=== PATIENT | male | born 1940 | race African-American/Black ===

== ENCOUNTER → 2016-09-23 10:34 | Outpatient (CLI) | payer MEDICARE ==
[2010-08-23 13:55] VITALS: BMI 25.3
== END | disposition home or self-care (01) ==
LOC: D.CT 09-16 11:00
DX: N28.1 Cyst of kidney, acquired (principal)

== ENCOUNTER 2018-06-24 10:14 | Inpatient (IN) | payer MEDICARE ==
[~2018-06-24] VITALS: Ht 180.3 cm; Wt 83.2 kg
--- NOTE | ~2018-06-24 | MORECARE ---
CASE MANAGEMENT DISCHARGE SUMMARY PATIENT: TATYANA DAI UNIT: [id number] ADM DATE: 06/24/18 AGE: 77 : 41 SEX: M ROOM/BED: D.2133 AUTHOR: CHANDRIKA VILLEGAS PHYSICIAN: REFERRING PHYSICIAN: BYRON REAVES MD DATE OF SERVICE: 06/27/18 Discharge Plan Patient Name: TATYANA DAI [facility] [facility] 1940 Planned Disposition: Home Anticipated Discharge Date: 06/27/18 Discharge Date: Expected LOS: 3 Initial Reviewer: [email or web address] Initial Review Date: 06/24/2018 Generated: 06/27/18 3:03 pm Patient Name: TATYANA DAI Page [phone] at 1403 All edits/amendments must be made on the electronic document DICTATION DATE: 06/27/18 140 TACO MAKER: JANET 06/27/18 140 RPT#: [id number] DC DATE: STATUS: ADM IN [facility] [address] [place] [address] END OF REPORT
--- NOTE | ~2018-06-24 | MORECARE ---
CASE MANAGEMENT DISCHARGE SUMMARY PATIENT: TATYANA DAI UNIT: [id number] ADM DATE: 06/24/18 AGE: 77 : 41 SEX: M ROOM/BED: D.2133 AUTHOR: CHANDRIKA VILLEGAS PHYSICIAN: REFERRING PHYSICIAN: BYRON REAVES MD DATE OF SERVICE: 06/27/18 Discharge Plan Patient Name: TATYANA DAI Facility: [facility]:[place] : 1940 Planned Disposition: Home Anticipated Discharge Date: 06/27/18 Discharge Date: Expected LOS: 3 Initial Reviewer: [email or web address] Initial Review Date: 06/24/2018 Generated: 06/27/18 3:11 pm DCPIA - Discharge Planning Initial Assessment Updated by [email or web address]: Marlene Moffett on 06/27/18 2:05 pm * Is the patient Alert and Oriented? Yes * How many steps to enter\exit or inside your home? none * PCP DR Reaves * Pharmacy [facility] on [facility] * Preadmission Environment Home with Family * ADLs Independent * Equipment None * Other Equipment N/A * List name and contact numbers for known caregivers / representatives who currently or will assist patient after discharge: [facility] [phone] * Verbal permission to speak to the caregivers and representatives has been obtained from the patient. Yes * Community resources currently utilized None * Please name any agencies selected above. N/A * Additional services required to return to the preadmission environment? No * Can the patient safely return to the preadmission environment? Yes * Has this patient been hospitalized within the prior 30 days at any hospital? No Last DP export: 06/27/18 1:03 Patient Name: TATYANA DAI Page [id number] at 1411 All edits/amendments must be made on the electronic document DICTATION DATE: 06/27/181410 CINDER PITMAN: JANET 06/27/181410 RPT#: [id number] DC DATE: STATUS: ADM IN [facility] [address] [place] [address] END OF REPORT
--- NOTE | ~2018-06-24 | MORECARE ---
CASE MANAGEMENT DISCHARGE SUMMARY PATIENT: TATYANA DAI UNIT: [id number] ADM DATE: 06/24/18 AGE: 77 : 41 SEX: M ROOM/BED: D.2133 AUTHOR: BAKARI,DOC PHYSICIAN: REFERRING PHYSICIAN: BYRON REAVES MD DATE OF SERVICE: 06/29/18 Discharge Plan Patient Name: TATYANA DAI Facility: [facility]:[place] : 1940 Planned Disposition: Home Anticipated Discharge Date: 06/27/18 Discharge Date: 06/27/2018 Expected LOS: 3 Initial Reviewer: [email or web address] Initial Review Date: 06/24/2018 Generated: 06/29/18 10:23 am Comments DCP- Discharge Planning Updated by [email or web address]: Marlene Moffett on 06/27/18 1:[address] Cm met at the bedside with the patient. His , Dulce, was present. He gave permission for CM to speak with her present. She assist him in managing his care. Cm explained her role in discharge planning. Patient and stated he is independent in his care. Denies any needs. He was not utilizing home health or any services prior to admission. Neither the patient or his feel he has a need at present. CM advised how to obtain home health service if needed post discharge. He does not have any DME. No need identified for DME. His will provide transportation to home. PCP- DR [facility]aves [facility]. P Patient and deny any needs. Voiced no questions or concerns. DCPIA - Discharge Planning Initial Assessment Updated by [email or web address]: Marlene Moffett on 06/27/18 2:05 pm * Is the patient Alert and Oriented? Yes * How many steps to enter\exit or inside your home? none * PCP DR Reaves * Pharmacy [facility] on [facility] * Preadmission Environment Home with Family * ADLs Independent * Equipment None * Other Equipment N/A * List name and contact numbers for known caregivers / representatives who currently or will assist patient after discharge: Dulce alexandre- - [phone] * Verbal permission to speak to the caregivers and representatives has been obtained from the patient. Yes * Community resources currently utilized None * Please name any agencies selected above. N/A * Additional services required to return to the preadmission environment? No * Can the patient safely return to the preadmission environment? Yes * Has this patient been hospitalized within the prior 30 days at any hospital? No Coverage Notice Reviewer: [email or web address] Carmen Marlene Moffett Notice Issued Date-Time: 06/27/2018 13:05 Notice Type: IM Discharge Notice Notice Delivered To: Patient Relationship to Patient: Api Product Manager Name: Delivery Method: HAND - Hand Delivered Jenifer Days: Prior Verbal Notification: Recipient Understood Notice: Yes Recipient Signature: Yes Med Rec Note Co-signed by Attending: Coverage Notice Comment: CM discussed Discharge IMM to the patient and his .. They had no questions and stated they understood. Patient signed Discharge IMM. Patient given a copy and signed copy to the hard cover chart. Last DP export: 06/27/18 1:18 Patient Name: TATYANA DAI Page [phone] at 0923 All edits/amendments must be made on the electronic document DICTATION DATE: 06/29/18922 APPLICATIONS SYSTEM ANALYST: JANET 06/29/18922 RPT#: [id number] DC DATE:06/27/18 STATUS: DIS IN [facility] [address] [place] [address] END OF REPORT
--- NOTE | ~2018-06-24 | OP ---
PATIENT NAME: TATYANA DAI MEDICAL RECORD: [id number] :42 LOCATION:D.M2 D.2133 ADMISSION DATE:06/24/18 SURGEON: EVER MANDEL MD DATE OF OPERATION: 06/26/2018 PROCEDURES: 1. PTCA stent LAD. 2. Intravascular ultrasound. 3. Left heart catheterization. 4. Selective coronary angiography. 5. Left ventriculogram. INDICATION: Angina and coronary artery disease. PROCEDURE IN DETAIL: After informed consent was obtained and after a detailed description of risks, benefits as well as alternative therapies, the patient proceed with angiogram and angioplasty. The right femoral area was prepped and draped in normal sterile fashion. Right femoral artery was cannulated via modified Seldinger technique with placement of 6-Yakut sheath. All catheters exchanged through this sheath. FINDINGS: Left ventriculogram was performed in standard 30-degree CHOUDHURY view reveals global hypokinesis throughout all segments. Overall ejection fraction estimated at 30%. SELECTIVE CORONARY ANGIOGRAPHY: 1. Left main showed no significant angiographic disease. 2. Left anterior descending with 80% stenosis in the mid vessel confirmed by intravascular ultrasound. 3. Left circumflex has mild irregularities, but no flow-limiting stenosis. 4. Right coronary has moderate irregularities, but no flow-limiting stenosis. PTCA STENT OF THE LEFT ANTERIOR DESCENDING: The stent used was a 3.0 x 15 mm Integrity. Result was 0% residual stenosis. OVERALL IMPRESSION: Successful PTCA stent of the LAD going from 80% initial stenosis to 0% residual. TRANSINT:[id number] Voice Confirmation ID: [id number] DOCUMENT ID: [id number] EVER MANDEL MD at 1914 CC: [id number] DICTATION DATE: 06/26/18 1552 SENIOR PRIVATE CLIENT ADVISOR: 06/26/18 1628 ADM IN [facility] [address] [place] [address]
--- NOTE | ~2018-06-24 | EC ---
PATIENT:TATYANA DAI DATE OF SERVICE: 06/24/18 SEX: M MEDICAL RECORD: [id number] DATE OF : 42 LOCATION:D.M2 D.213 AGE OF PATIENT: 77 ADMISSION DATE: 06/24/18 REFERRING PHYSICIAN: INTERPRETING PHYSICIAN: EVER SNOW MD ECHOCARDIOGRAM REPORT ECHO CHARGES 4 ECHO COMPLETE Date: 06/24/18 CLINICAL DIAGNOSIS: CHF ECHOCARDIOGRAPHIC MEASUREMENTS (adult normal given) AC root (d.<3.7cm) 3.1 cm LV Septum d (<1.2 cm> 1.5 cm Valve Excursion 1.2 cm LV Septum (systole) 1.6 cm Left Atria (s.<4.0cm> 4.5 cm LVPW d(<1.2cm) 0.8 cm RV (d.<2.3cm) 3.6 cm LVPW (sytole) 1.2 cm LV diastole(<5.6CM) 5.7 cm MV E-F(>70mm/sec) cm LV systole 4.8 cm LVOT Diameter 1.9 cm MV exc.(>10mm) cm Est.ejection fraction (50-75%) % DOPPLER: LVIT cm/sec A 25 cm/sec E 53 cm/sec LA cm/sec RVSP 40.7 mmHg LVOT 51 cm/sec AOP1/2T m/s Asc. Ao 120 cm/sec RVOT 47 cm/sec RA cm/sec PA 69 cm/sec AV Gradient Peak 5.7 mmHg AV Mean 3.4 mmHg AV Area 0.8 cm MV Gradient Peak 2.8 mmHg MV Mean 1.2 mmHg MV Area cm COMMENTS: Director Selection And Administration: Jas [facility] Industrial Paramedic: 1 Dr. Snow TAPE# PACS Pericardial Effusion N DATE OF SERVICE: 06/24/2018 FINDINGS: 1. Left ventricular chamber size is within normal limits. Left ventricular systolic function is depressed. Overall ejection fraction is estimated at 30%. 2. Left atrium is enlarged at 4.5 cm. Right atrium and right ventricle chamber sizes are moderately dilated. 3. Valvular structures have normal structure and motion. 4. Doppler interrogation reveals mild mitral regurgitation and mild tricuspid regurgitation. No other valvular insufficiency or stenosis. Pulmonary systolic ECHOCARDIOGRAM REPORT [id number] TATYANA DAI pressure is estimated at 41 mmHg. 5. No evidence of pericardial effusion or left ventricular thrombus. TRANSINT:[id number] Voice Confirmation ID: [id number] DOCUMENT ID: [id number] EVER SNOW MD at 1914 CC: [id number] DICTATION DATE: 06/24/18 1636 ASSISTANT CURATOR: 06/24/18 1813 ADM IN [facility] [address] [place] [id number]
--- NOTE | ~2018-06-24 | HP ---
PATIENT: TATYANA DAI MEDICAL RECORD: [id number] ACCOUNT: [id number] LOCATION:[facility] D.2133 : 42 ADMISSION DATE: 06/24/18 PCP: BYRON REAVES MD HISTORY AND PHYSICAL EXAMINATION DATE OF ADMISSION: 06/24/2018 CHIEF COMPLAINT: Shortness of breath with swelling in lower extremities. HISTORY OF PRESENT ILLNESS: A 77-year-old -[place] male who presents for followup today. The patient, over the past couple of weeks, has had some intermittent lower extremity edema. He has also recently had CT scan of abdomen which did reveal no definite acute findings of the abdomen. This was done on April 23. He had a noted circumferential bladder wall thickening as well as having bilateral adrenal nodules, which were indeterminate. It was suggested that he have an MRI. He had a large 12-cm simple cyst off the right kidney. He had been referred to Dr. Sreekanth Puentes, urologist at [facility], for evaluation. He did have a followup MRI of the abdomen. The MRI of the abdomen revealed bilateral adrenal nodules. The left adrenal nodule demonstrated signal dropout in keeping with a benign adenoma. The right adrenal nodularity was incomplete visualization as the exam was ordered as a renal protocol, it was felt that there was dropout in it as well and favored a benign adenoma. It was suggested he have a repeat CT in 6-12 months for further evaluation. Small bilateral pleural effusions were noted. He had a simple cyst noted on both kidneys, but one on the right was 12 cm. The patient also, in the past, had had a transesophageal echo on 08/20/2017 to evaluate for an aortic arch aneurysm. At that time, his left ventricular chambers were within normal. Overall ejection fraction was greater than 55%. Left atrium, right atrium, and right ventricle sizes were within normal limit. Valvular structures had no stricture and Doppler revealed [id number] mitral regurg, mild aortic insufficiency, mild tricuspid regurgitation, valvular insufficiency or stenosis. The aortic root was mildly dilated at 4.8 cm. He is followed by Dr. Morris. He had no pericardial effusion or ventricular thrombus. Over the past couple of weeks, the patient had also had a sed rate as well as a CRP which were totally unremarkable. He was noted to have liver functions which were beginning to elevate as well as his BUN and creatinine. The patient presented today. He had an 8-pound weight gain. It was felt that he warranted admission for further evaluation. PAST MEDICAL HISTORY: His past history is significant in that he has had diabetes mellitus. He has also had history of having hypertension. FAMILY HISTORY: He had a son who of aortic aneurysm. His mother had hypertension and at 43. Father at 80, reasons unknown. 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 He is educated through the 12th grade. He is . He has moderate amount of exercise weekly. He denies any ethanol, tobacco use or abuse. MEDICATIONS: Included Lasix 20 mg once a day, glipizide 10 mg p.o. daily, losartan 100 mg once a day, pantoprazole 40 mg a day, tamsulosin 0.4 mg two tabs p.o. daily, and vitamin D3 2000 international units once a day. ALLERGIES: He has no known drug allergies. HISTORY AND PHYSICAL [id number] TATYANA DAI REVIEW OF SYSTEMS: CONSTITUTIONAL: He denies any headache, seizure, or syncope. He denies any change in visual or auditory acuity. PULMONARY: He has reported having increasing shortness of breath. CARDIOVASCULAR: He has had no chest pain, palpitation, PND, or orthopnea. GASTROINTESTINAL: No chronic nausea, vomiting, melena, or hematochezia. GENITOURINARY: No urgency, frequency, or dysuria. PHYSICAL EXAMINATION: VITAL SIGNS: Today, his weight is 193 pounds. His blood pressure is 150/90, his pulse is 104, his respirations are 16, and temperature is 96.6. HEENT: His head is normocephalic. There are no lesions. Ears; his TMs are clear. Eyes; pupils are equal, round, and reactive to light. His extraocular movements are intact. His nasal cavity, oral cavity, and oropharynx are clear. NECK: Supple. There is no adenopathy. HEART: Slightly tachycardic. LUNGS: Clear. ABDOMEN: Soft. Bowel sounds are positive. EXTREMITIES: He has 2+ pretibial edema extending up to the knees. Of note, the patient, on 03/31/2018, had BUN of 17, creatinine 1.18, sodium 140, potassium 4.15, chloride 102.6, and bicarb 32. Today, the patient's BUN is 37, his creatinine is 2.1, sodium is 144, potassium 4.76, bicarb is 31.7, and chloride is 103.7. CBC; his hemoglobin is 13.9, hematocrit is 42.4, his white count is 9.9, and his platelets are 165. Chest x-ray showed cardiomegaly with some mild bilateral pleural effusion. He had an EKG showing sinus tachycardia with a right bundle-branch block. ASSESSMENT: Hepatocellular dysfunction, congestive heart failure, and acute renal failure. PLAN: The patient is admitted. Cardiology as well as nephrology will be consulted. He will have an echocardiogram. Asked to be seen by Dr. Yusuf. Also, the patient will have a renal workup and we will continue to evaluate this. TRANSINT:[id number] Voice Confirmation ID: [id number] DOCUMENT ID: [id number] BYRON REAVES MD at 0723 CC: [id number] DICTATION DATE: 06/24/18 1640 COSMETIC SALES: 06/24/18 1720 DIS IN 06/27/18 [place] [id number] [place] [address]
--- NOTE | ~2018-06-24 | DS ---
PATIENT:TATYANA DAI :42 MEDICAL RECORD: [id number] DISCHARGE SUMMARY ADMISSION DATE: 06/24/18 DISCHARGE DATE: 06/27/18 DATE OF ADMISSION: 06/24/2018 DATE OF DISCHARGE: 06/27/2018 ADMISSION DIAGNOSES: Congestive heart failure, acute renal failure, and hepatocellular dysfunction. DISCHARGE DIAGNOSES: Congestive heart failure, systolic dysfunction with ejection fraction of 30%, [id number] renal failure, and hepatocellular dysfunction. CONSULTS: Cardiology, Dr. Snow and Dr. Marrero, nephrology. PROCEDURES: Heart catheterization with a stent to the left anterior descending. HOSPITAL COURSE: The patient was admitted, edema, shortness of breath, diuresed for acute renal impairment failure, BUN of 37, creatinine 2.1. The patient was admitted cautiously, diuresed with shortness of breath, cardiology consulted. Echocardiogram showed significant decrease in ejection fraction from prior. Underwent cardiac catheterization with successful stent to the LAD. The patient is feeling much better. He is dressed and anxious to go home, has been cleared for discharge by cardiology and nephrology. Family is present and agree with discharge. The patient is discharged home in significantly improved condition. PHYSICAL EXAMINATION: On discharge, VITAL SIGNS: Temperature 98.6, blood pressure 112/79, heart rate 72, respirations 18, O2 sats 95% room air. GENERAL: The patient is alert dressed, answers appropriately, anxious to go home. HEART: Regular rate and rhythm. LUNGS: Clear. ABDOMEN: Soft. EXTREMITIES: Present times 4. No significant edema. NEUROLOGIC: Intact. SKIN: Warm and dry. No rash. LABORATORY DATA: CBC on discharge, hemoglobin 13, hematocrit 40.5. White count is 9.0, platelets 148. Chemistry shows sodium of 144, potassium 3.9, chloride 104, bicarbonate 31.8, BUN 38, creatinine improved to 1.8. The patient will follow up with Dr. Martin in 2 weeks. Follow up with nephrology within the next 2-3 weeks. DISCHARGE MEDICATIONS: Per med rec. DISCHARGE INSTRUCTIONS: He will bring all of his medicines to his appointment. Daily weights. See chart for further details. Appreciate and agree with the diagnoses of the specialist. DISCHARGE SUMMARY REPORT [id number] TATYANA DAI TRANSINT:[id number] Voice Confirmation ID: [id number] DOCUMENT ID: [id number] JAKE MAJOR DO at 1304 CC: [id number] DICTATION DATE: 06/27/18 115 BEAM SAW OPERATOR: 06/27/182128 DIS IN 06/27/18 [place] [id number] [place] [id number]
--- NOTE | ~2018-06-24 | HEMODYNAMI ---
PATIENT:TATYANA DAI MEDICAL RECORD: [id number] : 42 [id number] ADMISSION DATE: 06/24/18 Generatedon:06/26/201815:57 Patient name: TATYANA DAI Patient #: [id number] SSN: : 1940 Date of study: 06/26/2018 Page: Of Hemodynamic Procedure Report Patient Data Patient Demographics Procedure consent was obtained First Name: TATYANA Gender: Male Last Name: SUHAS : 1940 Patient #: [id number] Age: 77 year(s) Race: Black Additional ID: [id number] Contact details [address]: [address] [place] [address] State: [place] City: [place] Zip code: [address] Past Medical History Allergies: No known allergies Admission Admission Data Admission Date: 06/24/2018 Admission Time: 10:14 Admit Source: Other Room #: D.2133 Lab Results Lab Result Date: 06/26/2018 Lab Result Time: 0:00 Biochemistry Name Units Result Min Max BUN mg/dl 36 --(----)-* 7 18 Creatinine mg/dl 1.7 --(----)-* 0.6 1.3 CBC Name Units Result Min Max Hemoglobin g/dl 13 -*(----)-- 13.5 17.5 Procedure Procedure Types Cath Procedure Diagnostic Procedure [facility] w/Coronaries FFR/IVUS Intra-Coronary IVUS Initial Sedation Charges Moderate Sedation up to 15 minutes PCI Procedure Coronary Stent Coronary Stent Initial Procedure Description Procedure Date Procedure Date: 06/26/2018 Procedure Start Time: 15:35 Procedure End Time: 15:50 Procedure Staff Name Function Todd Snow MD Performing Physician Nette Meyer RT Monitor Jesus Jaimes RT Scrub Jessica Schmitt RN Nurse Procedure Data Cath Procedure Fluoroscopy Diagnostic fluoroscopy Total fluoroscopy Time: 2.6 time: 2.6 min min Diagnostic fluoroscopy Total fluoroscopy dose: 353 dose: 353 mGy mGy Contrast Material Contrast Material Type Amount (ml) Isovue 300 76 Entry Location Entry Primary Successful Side Size Upsize Upsize Entry Closure Succes sful Closure Location (Fr) 1 (Fr) 2 (Fr) Remarks Device Remarks Femoral Right 5 Fr 6 Fr Exoseal artery Short Estimated blood loss: 10 ml Diagnostic catheters Device Type Used For End Catheter Placement MULTIPACK Pigtail 5 Fr Procedure catheter MULTIPACK JL 4.0 5Fr Procedure catheter MULTIPACK 3DRC 5Fr Procedure catheter Procedure Complications No complications Procedure Medications Medication Administration Route Dosage 0.9% NaCl I.V. 100 ml/hr Oxygen etCO2 Nasal cannula 2 l/min Lidocaine 2% added to field 20 Heparin Flush Bag added to field 2 bags (1000units/500ml NS) Radial Cocktail added to field 1 syringe (Verapomil 2mg/Nitro 400mcg/Heparin 1500units) Fentanyl I.V. 50 mcg Versed I.V. 2 mg Heparin Bolus I.V. 4000 units Integrilin (Bolus I.V. 6.3 ml 2mg/ml) Plavix P.O. 600 mg Hemodynamics Rest HGB: 13 (g/dl) Heart Rate: 89 (bpm) Snapshots Pre Cath Intra NCS Post Cath Vital Signs Time Heart Resp SPO2 etCO2 NIBP (mmHg) Rhythm Pain Sedation Rate (ipm) (%) (mmHg) Status Level (bpm) 15:15:34 90 18 96 21.6 137/106(124) NSR 0 (11) 10(A) , No pain 15:19:46 93 26 100 17.1 132/110(123) NSR 0 (11) 10(A) , No pain 15:23:56 90 13 100 29.8 129/106(118) NSR 0 (11) 10(A) , No pain 15:28:03 90 14 100 29.8 136/106(125) NSR 0 (11) 9(A) , No pain 15:32:13 90 18 100 14.1 136/105(123) NSR 0 (11) 9(A) , No pain 15:36:21 94 21 96 26.8 124/100(114) NSR 0 (11) 9(A) , No pain 15:40:27 92 20 97 27 121/94(113) NSR 0 (11) 9(A) , No pain 15:44:31 90 20 96 28 132/98(115) NSR 0 (11) 9(A) , No pain 15:48:39 88 18 96 29.3 128/99(111) NSR 0 (11) 10(A) , No pain Medications Time Medication Route Dose Verified Delivered Reason Not es Effectiveness by by 15:15:22 0.9% NaCl I.V. 100 Todd Jessica used for ml/hr Gwendolyn Schmitt senior treasury analyst 15:15:31 Oxygen etCO2 2 l/min Todd Jessica used for Nasal Gwendolyn Schmitt procedure cannula RN 15:15:38 Lidocaine 2% added 20ml Todd Todd for local to vial Gwendolyn Snow MD anesthetic field 15:15:45 Heparin Flush added 2 bags Todd Todd used for Bag to Gwendolyn Snow MD procedure (1000units/500ml field NS) 15:16:06 Radial Cocktail added 1 Todd Todd used for (Verapomil to syringe Gwendolyn Snow MD procedure 2mg/Nitro field 400mcg/Heparin 1500units) 15:26:57 Fentanyl I.V. 50 mcg Todd Jessica for sedation Gwendolyn Schmitt RN 15:27:08 Versed I.V. 2 mg Todd Jessica for sedation Gwendolyn Schmitt RN 15:42:05 Heparin Bolus I.V. 4000 Todd Jessica for emmanuel ified units Gwendolyn Schmitt anticoagulation with Dr. SHIRA Baltazra 15:43:33 Integrilin I.V. 6.3 ml Todd Jessica for was domonique (Bolus 2mg/ml) Gwendolyn Schmitt anticoagulation 3.7mL RN 15:46:08 Plavix P.O. 600 mg Todd Jessica for Gwendolyn Schmitt antiplatelet RN therapy Procedure Log Time Note 14:50:18 Informed consent obtained and on chart 14:50:21 Admit Source: Other 14:50:34 Diagnostic Cath status Elective 14:50:35 Time tracking: Regular hours (M-F 7:00 - 5:00) 14:50:38 Plan of Care:Hemodynamics will remain stable., Cardiac rhythm will remain stable., Comfort level will be maintained., Respiratory function will remain adequate., Patient/ family verbilizes understanding of procedure., Procedure tolerated without complication., Recovers from procedure without complications.. 14:50:45 H&P Date Dictated: 06/24/2018 Within 30 days and on chart.. 14:52:53 Jesus Quarlesyder RT(R) sent for patient. Start room use. 15:04:09 Patient received from Med II to CCL 1 Alert and oriented. Tansferred to table in Supine position. 15:04:10 Warm blankets applied, and yaa hugger turned on for patient comfort. 15:04:11 Correct patient and procedure confirmed by team. 15:04:12 ECG and BP/O2 sat monitors applied to patient. 15:14:32 Vital chart was started 15:15:22 0.9% NaCl 100 ml/hr I.V. was administered by Jessica Schmitt RN; used for procedure; 15:15:31 Oxygen 2 l/min etCO2 Nasal cannula was administered by Jessica Schmitt RN; used for procedure; 15:15:38 Lidocaine 2% 20ml vial added to field was administered by Todd Snow MD; for local anesthetic; 15:15:45 Heparin Flush Bag (1000units/500ml NS) 2 bags added to field was administered by Todd Snow MD; used for procedure; 15:16:06 Radial Cocktail (Verapomil 2mg/Nitro 400mcg/Heparin 1500units) 1 syringe added to field was administered by Todd Snow MD; used for procedure; 15:18:42 Baseline sample Acquired. 15:18:46 Rhythm: sinus rhythm 15:18:48 Full Disclosure recording started 15:18:48 Pre-procedure instructions explained to patient. 15:18:49 Pre-op teaching completed and patient verbalized understanding. 15:18:50 Family in patients room. 15:18:51 Patient NPO since Midnight. 15:18:57 Patient allergic to No known allergies 15:18:59 Is the patient allergic to Iodine/contrast media? No. 15:19:05 Is patient on blood thinner?No 15:19:07 Patient diabetic? Yes. 15:19:08 If diabetic: On Metformin? Yes 15:19:29 PATIENT STATES METFORMIN SEVERAL DAYS AGO 15:19:32 Previous problem with sedation/anesthesia? No ? 15:19:33 Snore? Yes 15:19:34 Sleep apnea? No 15:19:36 Deviated septum? No 15:19:39 Opens mouth fully? Yes 15:19:42 Sticks out tongue? Yes 15:19:44 Airway obstruction? No ? 15:19:46 Dentures? Yes OUT 15:19:58 Modified Adrien's test Ulnar < 7 seconds 15:20:00 Patient pain scale 0/10 ?. 15:20:11 IV patent on arrival in left forearm with 0.9% NaCl at [facility]. 15:24:35 Lab results completed and on chart. 15:25:52 Right Radial & Right Groin area was prepped with chlora-prep and draped in sterile fashion 15::53 Alarms reviewed by R. N. 15::54 Sharps counted by scrub and verified by R.N. 15::55 --------ALL STOP TIME OUT------ 15::55 Final Timeout: patient, procedure, and site verified with staff and physician. All members of the team are in agreement. 15:25:56 Right Radial & Right Groin site verified by team. 15::59 Physical assessment completed. ASA score P 2 - A patient with mild systemic disease as per Todd Snow MD. 15:26:02 Sedation plan: IV Moderate Sedation Medication:Versed, Fentanyl 15::57 Fentanyl 50 mcg I.V. was administered by Jessica Schmitt RN; for sedation; 15::08 Versed 2 mg I.V. was administered by Jessica Schmitt RN; for sedation; 15::44 Lab Result : BUN 36 mg/dl 15::44 Lab Result : Creatinine 1.7 mg/dl 15::44 Lab Result : Hemoglobin 13 g/dl 15:35:00 Procedure started. 15:35:03 Local anesthetic to right femoral artery with Lidocaine 2% by Todd Snow MD.INITIAL ACCESS ONLY 15:35:06 Use device set Femoral Dx 15:35:08 ACIST Syringe (95921) opened to sterile field. 15:35:09 Bag Decanter () opened to sterile field. 15:35:10 ACIST Hand Control (02996) opened to sterile field. 15:35:10 ACIST Manifold (99325) opened to sterile field. 15:35:11 Tegaderm 4 x 4 (1626W) opened to sterile field. 15:35:13 Medline Cath Pack ([id number]) opened to sterile field. 15:35:13 DIAGNOSTIC WIRE .035 260cm J wire (926255) opened to sterile field. 15:35:15 DIAGNOSTIC Multipack 5Fr catheter set (XA3175) opened to sterile field. 15:35:17 SHEATH Prelude 5Fr 0.035 (AEA-3P-20-035) opened to sterile field. 15:35:42 A 5 Fr sheath was inserted into the Right Femoral artery 15:36:34 A MULTIPACK Pigtail 5 Fr catheter was advanced over the wire and used for Procedure. 15:36:39 LV gram done using CHOUDHURY 15:36:42 Injector settings: Ml/sec: 10, Volume: 20, 15:37:13 EF : 30 % 15:37:15 Catheter removed. 15:37:21 A MULTIPACK JL 4.0 5Fr catheter was advanced over the wire and used for Procedure. 15:38:29 LCA angiography performed. 15:38:51 Catheter removed. 15:38:57 A MULTIPACK 3DRC 5Fr catheter was advanced over the wire and used for Procedure. 15:39:40 RCA angiography performed. 15:39:45 Catheter removed. 15:40:26 SHEATH 6FR [place] (GQU456) opened to sterile field. 15:40:30 Sheath upsized to a 6 Fr Short. 15:40:51 GUIDE 6FR EBU 4.5 catheter ([id number]) opened to sterile field. 15:40:58 CHOICE PT Extra Support 182cm wire ([id number]) opened to sterile field. 15:40:58 Dunnell Zuni Eagleye IVUS Catheter (32032N) opened to sterile field. 15:41:09 6 Fr EBU 4.5 guide catheter was inserted over the wire 15:41:12 CHOICE ES wire advanced. 15:41:49 Wire advanced across lesion. 15:42:05 Heparin Bolus 4000 units I.V. was administered by Jessica Schmitt RN; for anticoagulation; verified with Dr. Snow 15:43:09 IVUS catheter advanced over wire. 15:43:11 IVUS pass to LAD lesion performed. 15:43:12 IVUS catheter removed over wire. 15:43:33 Integrilin (Bolus 2mg/ml) 6.3 ml I.V. was administered by eJssica Schmitt RN; for anticoagulation; wasted 3.7mL 15:44:34 Place stent Inflation Number: 1 A INTEGRITY RX 3.0 x 18 stent ([id number]) was prepped and advanced across the Mid LAD. The stent was deployed at 13 JOSE for 0:10 (min:sec). 15:44:54 Stent catheter was removed intact over wire. 15:44:54 Wire removed. 15:44:55 Guide catheter removed. 15:45:00 EXOSEAL 6Fr (EX600) opened to sterile field. 15:45:52 Sheath removed intact; hemostasis achieved with Exoseal to the Right Femoral artery. 15:45:54 Procedure ended.(Physican Out) 15:46:08 Plavix 600 mg P.O. was administered by Jessica Schmitt RN; for antiplatelet therapy; 15:47:20 Fluoroscopy time 02.60 minutes. 15:47:24 Fluoroscopy dose: 353 mGy 15:47:24 Flurop Dose total: 353 15:47:32 Contrast amount:Isovue 300 76ml. 15:47:36 Post-op/insertion site Right Femoral artery dressed using a 4 x 4 and Tegaderm. 15:47:39 Post right femoral artery:stable, soft, clean and dry 15:47:42 Post-procedure physical assessment completed. ASA score P 2 - A patient with mild systemic disease as per Todd Snow MD. 15:47:45 Post procedure rhythm: sinus rhythm 15:47:46 Estimated blood loss: 10 ml 15:47:48 Post procedure instruction explained to patient.Patient verbalizes understanding. 15:47:48 Patient needs reinforcement of post procedure teaching. 15:48:07 Procedure type changed to Cath procedure, Diagnostic procedure, LHC, C w/Coronaries, FFR/IVUS, Intra-Coronary IVUS Initial, Sedation Charges, Moderate Sedation up to 15 minutes, PCI procedure, Coronary Stent, Coronary Stent Initial 15:50:19 Procedure and supply charges have been captured, reviewed, submitted and are correct. 15:50:22 Procedure Complication : No complications 15:50:23 Vital chart was stopped 15:50:24 See physician's report for complete and final results. 15:50:26 Report given to PCU. 15:50:29 Patient transfered to PCU with Bed. 15:50:30 Procedure ended. 15:50:30 Full Disclosure recording stopped 15:50:34 End room use (Document Last) 15:54:12 FEMSTOP Gold ([id number]) opened to sterile field. 15:54:18 Femstop placed over the right femoral artery at 150 mmHg. Hemostasis achieved. Intervention Summary Intervention Notes Time ActionType Lesion and Equipment Action# Pressure Duration Attributes Used 15:44:34 Place stent Mid LAD INTEGRITY RX 1 13 00:10 3.0 x 18 stent ([id number]) Device Usage Item Name Manufacture Quantity Catalog Number Hospital Part Current M inimal Lot# / Charge Number Stock Stock Serial# Code ACIST Syringe Acist 1 38792 356254 153794 295647 2 0 (38495) Medical Systems WildBlue Bag Decanter Microtek 1 2001S 672512 23967 513028 5 (2001S) Medical Inc. ACIST Hand Acist 1 68289 445637 927854 835907 5 Control (85642) Medical Systems Inc ACIST Manifold Acist 1 52584 459935 081972 573381 5 (44952) Medical Systems WildBlue Tegaderm 4 x 4 3M 1 1626W 796261 676926 379026 5 (1626W) Medline Cath Medline 1 [id number] 396227 04376 180759 5 Pack ([id number]) DIAGNOSTIC WIRE St Enoc 1 487708 787777 723366 862629 3 0 .035 260cm J wire (054576) DIAGNOSTIC Cardinal 1 MW8577 366529 22677 986926 3 0 Multipack 5Fr Health catheter set (XO9371) SHEATH Prelude Merit 1 GKT-2O-74-035 284513 254450 677080 5 5Fr 0.035 Medical (NMP-2Y-14-035) MULTIPACK Cardinal 1 642845 5 Pigtail 5 Fr Health catheter MULTIPACK JL Cardinal 1 468638 5 4.0 5Fr Health catheter MULTIPACK 3DRC Cardinal 1 331787 5 5Fr catheter Health SHEATH 6FR Terumo 1 VWW787 023514 327402 593302 4 0 [place] (WLP655) GUIDE 6FR EBU Medtronic 1 [id number] 006207 18184 636163 0 4.5 catheter ([id number]) CHOICE PT Extra Chauncey 1 [id number] 351614 632118 804186 5 Support 182cm Scientific wire ([id number]) Dunnell Dunnell 1 06879W 269667 778414 913189 8 Zuni Eagleye IVUS Catheter (33267S) INTEGRITY RX Medtronic 1 [id number] 723544 671908 892099 5 [id number] 3.0 x 18 stent ([id number]) EXOSEAL 6Fr Cardinal 1 EX600 739157 408965 751967 1 0 (EX600) Health FEMSTOP Gold St Enoc 1 L07191 526718 931673 081545 5 (X70656) Signature Audit [place] Stage Time Signature Unsigned Intra-Procedure 06/26/2018 Nette Meyer 3:57:32 PM RT(R) Signatures Monitor : Nette Meyer Signature : RT Date : Time : [place] [place] [address]
--- NOTE | ~2018-06-24 | MORECARE ---
CASE MANAGEMENT DISCHARGE SUMMARY PATIENT: TATYANA DAI UNIT: [id number] ADM DATE: 06/24/18 AGE: 77 : 41 SEX: M ROOM/BED: D.2133 AUTHOR: BAKARI,DOC PHYSICIAN: REFERRING PHYSICIAN: BYRON REAVES MD DATE OF SERVICE: 06/27/18 Discharge Plan Patient Name: TATYANA DAI Facility: [facility]:[place] : 1940 Planned Disposition: Home Anticipated Discharge Date: 06/27/18 Discharge Date: Expected LOS: 3 Initial Reviewer: [email or web address] Initial Review Date: 06/24/2018 Generated: 06/27/18 3:18 pm Comments DCP- Discharge Planning Updated by [email or web address]: Marlene Moffett on 06/27/18 1:[address] Cm met at the bedside with the patient. His , Dulce, was present. He gave permission for CM to speak with her present. She assist him in managing his care. Cm explained her role in discharge planning. Patient and stated he is independent in his care. Denies any needs. He was not utilizing home health or any services prior to admission. Neither the patient or his feel he has a need at present. CM advised how to obtain home health service if needed post discharge. He does not have any DME. No need identified for DME. His will provide transportation to home. PCP- DR Reaves [facility]- [facility] on [facility]. P Patient and deny any needs. Voiced no questions or concerns. DCPIA - Discharge Planning Initial Assessment Updated by [email or web address]: Marlene Moffett on 06/27/18 2:05 pm * Is the patient Alert and Oriented? Yes * How many steps to enter\exit or inside your home? none * PCP DR Reaves * Pharmacy [facility] on [facility] * Preadmission Environment Home with Family * ADLs Independent * Equipment None * Other Equipment N/A * List name and contact numbers for known caregivers / representatives who currently or will assist patient after discharge: Dulce alexandre- - [phone] * Verbal permission to speak to the caregivers and representatives has been obtained from the patient. Yes * Community resources currently utilized None * Please name any agencies selected above. N/A * Additional services required to return to the preadmission environment? No * Can the patient safely return to the preadmission environment? Yes * Has this patient been hospitalized within the prior 30 days at any hospital? No Coverage Notice Reviewer: [email or web address] Carmen Moffett Notice Issued Date-Time: 06/27/2018 13:05 Notice Type: IM Discharge Notice Notice Delivered To: Patient Relationship to Patient: Amusement Park Entertainer Name: Delivery Method: - Jenifer Days: Prior Verbal Notification: Recipient Understood Notice: Recipient Signature: Med Rec Note Co-signed by Attending: Coverage Notice Comment: Last DP export: 06/27/18 1:11 Patient Name: TATYANA DAI Page [id number] at 1418 All edits/amendments must be made on the electronic document DICTATION DATE: 06/27/181416 CHEF DE PARTIE: JANET 06/27/181416 RPT#: [id number] DC DATE: STATUS: ADM IN [facility] [address] [place] [address] END OF REPORT
[2018-06-24 11:29] LABS: BASOPHILS 0.2 % (0-2); EOSINOPHILS 0.9 % (0-7); HEMATOCRIT 42.4 % (42.0-54.0); HEMOGLOBIN 13.9 g/dL (13.5-17.5); IMMATURE GRANULOCYTES 0.2 % (0-5); LYMPHOCYTES 16.5 % (15-50); MCH 30.3 pg (26.0-34.0); MCHC 32.8 g/dL (31.0-37.0); MCV 92.6 fL (80.0-100.0); MEAN PLATELET VOLUME 12.3 fL (7.4-10.4); MONOCYTES 9.9 % (2-11); NEUTROPHILS 72.3 % (40-80); RBC 4.58 10x6/uL (4.20-6.10); WBC 9.9 10x3/uL (4.8-10.8)
[2018-06-24 11:32] VITALS: BP 157/117; BMI 26.9
[2018-06-24 11:38] LABS: COMPLEMENT C4 15.9 mg/dL (17.4-52.2)
[2018-06-24 11:40] LABS: PLATELET COUNT 165 10x3/uL (130-400)
[2018-06-24 11:49] LABS: ANION GAP 14.2 mmol/L (8-16); BILIRUBIN - TOTAL 2.67 mg/dL (0.2-1.3); CALCIUM 9.2 mg/dL (8.5-10.1); CARBON DIOXIDE 29.5 mmol/L (21.0-32.0); CREATININE - SERUM 2.1 mg/dL (0.6-1.3); POTASSIUM - SERUM 4.7 mmol/L (3.5-5.1); PROTEIN - SERUM 7.1 g/dL (6.4-8.2); T4 THYROXIN - FREE 1.02 ng/dL (0.76-1.46); THYROID STIMULATING HORMONE 2.59 uIU/mL (0.36-3.74)
[2018-06-24 12:16] VITALS: Ht 180.3 cm; Wt 83.2 kg
[2018-06-24 15:35] VITALS: BP 146/100
[2018-06-24 20:00] VITALS: BP 136/93
[2018-06-25] VITALS: BP 128/95
[2018-06-25 04:44] LABS: BASOPHILS 0.1 % (0-2); EOSINOPHILS 2.8 % (0-7); HEMATOCRIT 40.6 % (42.0-54.0); HEMOGLOBIN 13.4 g/dL (13.5-17.5); IMMATURE GRANULOCYTES 0.1 % (0-5); LYMPHOCYTES 21.2 % (15-50); MCH 30.2 pg (26.0-34.0); MCV 91.6 fL (80.0-100.0); MONOCYTES 10.1 % (2-11); NEUTROPHILS 65.7 % (40-80); PLATELET COUNT 138 10x3/uL (130-400); RBC 4.43 10x6/uL (4.20-6.10); RDW 14.6 % (11.5-14.5); WBC 7.7 10x3/uL (4.8-10.8)
[2018-06-25 05:23] LABS: ALBUMIN 2.8 g/dL (3.4-5.0); ANION GAP 9.2 mmol/L (8-16); BILIRUBIN - TOTAL 2.21 mg/dL (0.2-1.3); CALCIUM 8.9 mg/dL (8.5-10.1); CARBON DIOXIDE 35.7 mmol/L (21.0-32.0); CREATININE - SERUM 1.8 mg/dL (0.6-1.3); PHOSPHOROUS 4.2 mg/dL (2.5-4.9); PROTEIN - SERUM 6.8 g/dL (6.4-8.2)
[2018-06-25 05:34] LABS: POTASSIUM - SERUM 3.9 mmol/L (3.5-5.1)
[2018-06-25 05:57] VITALS: BP 135/96
[2018-06-25 08:22] VITALS: BP 147/100
[2018-06-25 11:42] VITALS: BP 163/91
[2018-06-25 12:17] LABS: ANTI-STREPTOLYSIN O 23.5 IU/mL (0.0-200.0)
[2018-06-25 14:22] LABS: ANA REFLEX - DBL STRANDED DNA 1 IU/mL (0-9); ANA REFLEX - DIRECT Negative (Negative)
[2018-06-25 15:47] VITALS: BP 138/88
[2018-06-25 18:34] LABS: NA - URINE 103 MMOL/L (20-110)
[2018-06-25 18:37] LABS: CREATININE - URINE 26.2 mg/dL (30-125)
[2018-06-25 18:53] LABS: CREATININE - SERUM 1.8 mg/dL (0.6-1.3)
[2018-06-25 20:02] LABS: NA - 24HR 433 mmol/24h (40-220)
[2018-06-25 20:49] VITALS: BP 135/94
[2018-06-26] VITALS (8 sets, daily range): BP systolic 123–155; BP diastolic 71–107
[2018-06-26 05:17] LABS: COMPLEMENT - TOTAL CH50 >60 U/mL (>41)
[2018-06-26 06:13] LABS: HEMATOCRIT 40.7 % (42.0-54.0); LYMPHOCYTES 23.7 % (15-50); MCH 29.3 pg (26.0-34.0); MCHC 31.9 g/dL (31.0-37.0); MCV 91.7 fL (80.0-100.0); MEAN PLATELET VOLUME 11.9 fL (7.4-10.4); NEUTROPHILS 65.3 % (40-80); PLATELET COUNT 118 10x3/uL (130-400); RBC 4.44 10x6/uL (4.20-6.10); RDW 16.6 % (11.5-14.5); WBC 6.4 10x3/uL (4.8-10.8)
[2018-06-26 06:41] LABS: ALBUMIN 2.5 g/dL (3.4-5.0); BILIRUBIN - TOTAL 1.78 mg/dL (0.2-1.3); CALCIUM 8.9 mg/dL (8.5-10.1); CARBON DIOXIDE 36.3 mmol/L (21.0-32.0); CREATININE - SERUM 1.7 mg/dL (0.6-1.3); MAGNESIUM - SERUM 1.6 mg/dL (1.8-2.4); PHOSPHOROUS 4.2 mg/dL (2.5-4.9); PROTEIN - SERUM 6.2 g/dL (6.4-8.2)
[2018-06-26 06:46] LABS: POTASSIUM - SERUM 3.3 mmol/L (3.5-5.1)
[2018-06-26 11:19] LABS: ANTI-GLOMERULAR BASMENT MEMBRN 3 units (0-20)
[2018-06-26 16:15] LABS: ANCA - ANTIMYELOPEROXIDASE <9.0 U/mL (0.0-9.0); ANCA - ANTIPROTEINASE 3 <3.5 U/mL (0.0-3.5); ANCA - ATYPICAL <1:20 titer (Neg:<1:20); ANCA - CYTOPLASMIC <1:20 titer (Neg:<1:20); ANCA - PERINUCLEAR <1:20 titer (Neg:<1:20)
[2018-06-27] VITALS: BP 123/86
[2018-06-27 04:00] VITALS: BP 106/70
[2018-06-27 05:39] LABS: BASOPHILS 0.2 % (0-2); EOSINOPHILS 2.8 % (0-7); HEMATOCRIT 40.5 % (42.0-54.0); IMMATURE GRANULOCYTES 0.3 % (0-5); LYMPHOCYTES 20.3 % (15-50); MCH 29.4 pg (26.0-34.0); MCHC 32.1 g/dL (31.0-37.0); MCV 91.6 fL (80.0-100.0); NEUTROPHILS 64.4 % (40-80); RBC 4.42 10x6/uL (4.20-6.10); RDW 15.1 % (11.5-14.5)
[2018-06-27 05:44] LABS: PLATELET COUNT 148 10x3/uL (130-400)
[2018-06-27 06:26] LABS: ANION GAP 12.1 mmol/L (8-16); CALCIUM 8.5 mg/dL (8.5-10.1); CARBON DIOXIDE 31.8 mmol/L (21.0-32.0); CREATININE - SERUM 1.8 mg/dL (0.6-1.3); MAGNESIUM - SERUM 1.9 mg/dL (1.8-2.4); PHOSPHOROUS 4.1 mg/dL (2.5-4.9)
[2018-06-27 06:27] LABS: POTASSIUM - SERUM 3.9 mmol/L (3.5-5.1)
[2018-06-27] MEDS ORDERED: COZAAR50 MG PO (08:00)
[2018-06-27] MEDS ORDERED: COREG12.5 MG PO (08:00)
[2018-06-27] MEDS ORDERED: LASIX40 MG PO (08:01)
[2018-06-27] MEDS ORDERED: K-DUR20 MEQ PO (08:02)
[2018-06-27] MEDS ORDERED: PLAVIX75 MG PO (08:02)
[2018-06-27 09:04] VITALS: BP 112/79
[2018-06-27 13:05] VITALS: BP 101/69
[2018-07-01 07:35] LABS: METAN - URINE 40 ug/L (Undefined)
[2018-07-01 09:20] LABS: CORTISOL FREE - UR 13 ug/L (Undefined)
[2018-07-02 12:41] LABS: CORTISOL FREE - 24HR 55 ug/24 hr (0-50)
[2018-07-02 12:42] LABS: METAN - URINE 24HR 168 ug/24 hr (45-290)
[2018-07-03 03:12] LABS: ALDOSTERONE - 24HR <10.50 ug/24 hr (0.00-19.00); ALDOSTERONE - UR <2.50 ug/L (Not Estab.)
== END 2018-06-27 14:33 | disposition home or self-care (01) | DRG 249 ==
LOC: D.M2 10:14
PROVIDERS: Family Medicine; Internal Medicine Interventional Cardiology; Internal Medicine Nephrology
PROC: 4A023N7 Measurement of Cardiac Sampling and Pressure, Left Heart, Percutaneous Approach (ICD-10-PCS; 2018-06-26)
PROC: B2111ZZ Fluoroscopy of Multiple Coronary Arteries using Low Osmolar Contrast (ICD-10-PCS; 2018-06-26)
PROC: B2151ZZ Fluoroscopy of Left Heart using Low Osmolar Contrast (ICD-10-PCS; 2018-06-26)
PROC: 02703DZ Dilation of Coronary Artery, One Artery with Intraluminal Device, Percutaneous Approach (ICD-10-PCS; principal; 2018-06-26 12:30)
PROC: B240ZZ3 Ultrasonography of Single Coronary Artery, Intravascular (ICD-10-PCS; 2018-06-26 12:30)
DX: I13.0 Hypertensive heart and chronic kidney disease with heart failure and stage 1 through stage 4 chronic kidney disease, or unspecified chronic kidney disease (principal); N17.9 Acute kidney failure, unspecified; I50.22 Chronic systolic (congestive) heart failure; I25.119 Atherosclerotic heart disease of native coronary artery with unspecified angina pectoris; N18.3 Chronic kidney disease, stage 3 (moderate); E11.22 Type 2 diabetes mellitus with diabetic chronic kidney disease; I27.20 Pulmonary hypertension, unspecified; E11.9 Type 2 diabetes mellitus without complications; N40.0 Benign prostatic hyperplasia without lower urinary tract symptoms; E27.9 Disorder of adrenal gland, unspecified; K76.89 Other specified diseases of liver

== ENCOUNTER → 2019-01-05 08:14 | Outpatient (CLI) | payer MEDICARE ==
[2018-06-24 12:16] VITALS: BMI 26.9
[~2019-01-05 08:14] MED LIST: COREG12.5 MG PO; COZAAR50 MG PO; K-DUR20 MEQ PO; LASIX40 MG PO; PLAVIX75 MG PO
== END | disposition home or self-care (01) ==
LOC: D.MRI 08:14
PROVIDERS: ATTEND Internal Medicine Nephrology
DX: I12.9 Hypertensive chronic kidney disease with stage 1 through stage 4 chronic kidney disease, or unspecified chronic kidney disease (principal); N18.3 Chronic kidney disease, stage 3 (moderate); R50.9 Fever, unspecified; Q16.3 Congenital malformation of ear ossicles; E27.8 Other specified disorders of adrenal gland; E11.22 Type 2 diabetes mellitus with diabetic chronic kidney disease; Z68.25 Body mass index [BMI] 25.0-25.9, adult; Z68.24 Body mass index [BMI] 24.0-24.9, adult

== ENCOUNTER → 2019-09-14 08:44 | Outpatient (CLI) | payer MEDICARE ==
[2018-06-24 12:16] VITALS: BMI 26.9
== END | disposition home or self-care (01) ==
LOC: D.ECHO 08:44
PROVIDERS: ATTEND Family Medicine
DX: I50.9 Heart failure, unspecified (principal)

== ENCOUNTER 2019-09-24 07:52 | Outpatient (CLI) | payer MEDICARE ==
[~2019-09-24] VITALS: Ht 180.3 cm; Wt 76.2 kg
--- NOTE | ~2019-09-24 | HEMODYNAMI ---
PATIENT:TATYANA DAI MEDICAL RECORD: [id number] : 42 LOCATION:[facility] ADMISSION DATE: 09/24/19 Generatedon:09/24/201910:26 Patient name: TATYANA DAI Patient #: [id number] : 1940 Date of study: 09/24/2019 Page: Of Hemodynamic Procedure Report Patient Data Patient Demographics Procedure consent was obtained First Name: TATYANA Gender: Male Last Name: SUHAS : 1940 Patient #: [id number] Age: 78 year(s) Race: Black SSN: [id number] Additional ID: [id number] Contact details Address: [address] [place] [address] State: [place] City: [place] Zip code: [address] Past Medical History Allergies: No known allergies Admission Admission Data Admission Date: 09/24/2019 Admission Time: 7:52 Arrival Date: 09/24/2019 Arrival Time: 10:30 Admit Source: Other Insurance Payor: Private health insurance [facility] #: [id number] Height (in.): 70.87 BSA: 1.95 (m2) Height (cm.): 180 BMI: 23.46 (kg/m2) Weight (lbs.): 167.55 Weight (kg.): 76 Lab Results Lab Result Date: 09/24/2019 Lab Result Time: 0:00 Biochemistry Name Units Result Min Max BUN mg/dl 36 --(----)-* 7 18 Creatinine mg/dl 1.4 --(----)*- 0.6 1.3 eGFR ml/min 63 *-(----)-- 90 120 AM CBC Name Units Result Min Max Hemoglobin g/dl 14.1 --(*---)-- 13.5 17.5 Procedure Procedure Types Cath Procedure Diagnostic Procedure LHC LHC w/Coronaries FFR/IVUS FFR Initial FFR Additional Sedation Charges Moderate Sedation up to 15 minutes PCI Procedure Coronary Stent Coronary Stent Initial Procedure Description Procedure Date Procedure Date: 09/24/2019 Procedure Start Time: 10:04 Procedure End Time: 10:21 Procedure Staff Name Function Todd Snow MD Performing Physician Ira Talavera RT Monitor Марина Miller RT Scrub Jessica Schmitt RN Nurse Indication Angina Procedure Data Cath Procedure Fluoroscopy Diagnostic fluoroscopy Total fluoroscopy Time: 3.9 time: 3.9 min min Diagnostic fluoroscopy Total fluoroscopy dose: 665 dose: 665 mGy mGy Contrast Material Contrast Material Type Amount (ml) Isovue 300 99 Entry Location Entry Primary Successful Side Size Upsize Upsize Entry Closure Succes sful Closure Location (Fr) 1 (Fr) 2 (Fr) Remarks Device Remarks Femoral Right 5 Fr 6 Fr Exoseal artery Short Estimated blood loss: 5 ml Diagnostic catheters Device Type Used For End Catheter Placement MULTIPACK Pigtail 5 Fr LV Angiography catheter MULTIPACK JL 4.0 5Fr Left Coronary catheter Angiography MULTIPACK 3DRC 5Fr Right Coronary catheter Angiography DIAGNOSTIC AR2 MOD 5 Fr Right Coronary catheter ([id number]) Angiography Procedure Complications No complications Procedure Medications Medication Administration Route Dosage 0.9% NaCl I.V. 100 ml/hr Oxygen etCO2 Nasal cannula 2 l/min Lidocaine 2% added to field 20 Heparin Flush Bag added to field 2 bags (1000units/500ml NS) Versed I.V. 2 mg Fentanyl I.V. 50 mcg Fentanyl I.V. 50 mcg Heparin Bolus I.V. 4000 units Integrilin (Bolus I.V. 7.3 ml 2mg/ml) Integrilin (Bolus wasted 2.7 ml 2mg/ml) Plavix P.O. 600 mg Hemodynamics Rest BSA: 1.95 (m2) HGB: 14.1 (g/dl) O2 Consumption: Estimated: 234.33 (ml/min) O2 Co nsumption indexed: Estimated:120.17 (ml/min/m) Heart Rate: 85 (bpm) Pressure Samples Time Site Value (mmHg) Purpose Heart Use Rate(bpm) 10:05 LV 61/-2,7 Snapshot 83 Snapshots Pre Cath Intra NCS Post Cath Vital Signs Time Heart Resp SPO2 etCO2 NIBP (mmHg) Rhythm Pain Sedation Rate (ipm) (%) (mmHg) Status Level (bpm) 9:37:05 86 13 100 31.5 128/87(113) NSR 0 (11) 10(A) , No pain 9:41:11 82 18 100 0 121/84(105) NSR 0 (11) 10(A) , No pain 9:45:17 83 15 100 0 118/77(93) NSR 0 (11) 10(A) , No pain 9:49:20 83 19 99 0 115/77(90) NSR 0 (11) 10(A) , No pain 9:53:24 80 19 99 8.2 116/76(96) NSR 0 (11) 10(A) , No pain 9:57:28 76 16 99 17.2 116/75(92) NSR 0 (11) 10(A) , No pain 10:01:31 75 18 98 7.5 112/74(87) NSR 0 (11) 10(A) , No pain 10:05:37 75 16 98 12.7 111/62(87) NSR 0 (11) 10(A) , No pain 10:09:39 74 15 99 27.7 115/72(83) NSR 0 (11) 10(A) , No pain 10:13:43 75 15 98 30 112/73(86) NSR 0 (11) 9(A) , No pain 10:17:48 77 15 99 24.8 104/66(79) NSR 0 (11) 9(A) , No pain 10:21:48 79 15 98 27 110/70(84) NSR 0 (11) 10(A) , No pain Medications Time Medication Route Dose Verified Delivered Reason Notes Effectiveness by by 9:36:07 0.9% NaCl I.V. 100 Todd Jessica used for ml/hr Gwendolyn Schmitt [employer] senior [employer] 9:36:14 Oxygen etCO2 2 Todd Jessica used for Nasal l/min Gwendolyn Schmitt procedure cannula RN 9:36:22 Lidocaine 2% added 20ml Todd Brooks for local to vial Gwendolyn Snow MD anesthetic field 9:36:26 Heparin Flush added 2 Todd Todd used for Bag to bags Gwendolyn Snow MD procedure (1000units/500ml field NS) 10:01:53 Versed I.V. 2 mg Todd Jessica for sedation Gwendolyn Schmitt RN 10:02:02 Fentanyl I.V. 50 Todd Jessica for sedation mcg Gwendolyn Schmitt RN 10:08:52 Fentanyl I.V. 50 Todd Ruckera for sedation mcg Gwendolyn Schmitt RN 10:14:39 Heparin Bolus I.V. 4000 Todd Lopez for verif ied units Gwendolyn Schmitt anticoagulation with Dr. SHIRA Snow 10:14:52 Integrilin I.V. 7.3 Todd Ruckera for (Bolus 2mg/ml) ml Gwendolyn Schmitt antiplatelet RN therapy 10:15:10 Integrilin wasted 2.7 Todd Lopez for (Bolus 2mg/ml) ml Gwendolyn Schmitt antiplatelet RN therapy 10:15:15 Plavix P.O. 600 Todd Lopez for mg Gwendolyn Schmitt antiplatelet RN therapy Procedure Log Time Note 9:18:17 Марина Miller RT(R) sent for patient. Start room use. 9:22:10 Diagnostic Cath Status : Elective 9:22:50 Indication : Angina 9:23:37 Informed consent obtained and on chart 9:24:47 Admit Source: Other 9::49 Arrival Date: 09/24/2019 10:30:00 AM 9:25:22 Insurance Payor : Private health insurance 9:25:30 Patient Height : 70.87 inches 9:25:34 Patient Weight : 167.55 lbs 9:28:09 Lab Result : BUN 36 mg/dl 9:28:09 Lab Result : eGFR AM 63 ml/min 9:28:09 Lab Result : Creatinine 1.4 mg/dl 9:28:10 Lab Result : Hemoglobin 14.1 g/dl 9:28:18 Time tracking: Regular hours (M-F 7:00 - 5:00) 9:28:22 Plan of Care:Hemodynamics will remain stable., Cardiac rhythm will remain stable., Comfort level will be maintained., Respiratory function will remain adequate., Patient/ family verbilizes understanding of procedure., Procedure tolerated without complication., Recovers from procedure without complications.. 9:28:35 Patient received from Pre/Post Procedure Room to CCL 2 Alert and oriented. Tansferred to table in Supine position. 9:28:36 Warm blankets applied, and yaa hugger turned on for patient comfort. 9:28:36 Correct patient and procedure confirmed by team. 9:28:36 ECG and BP/O2 sat monitors applied to patient. 9:36:00 Vital chart was started 9:36:07 0.9% NaCl 100 ml/hr I.V. was administered by Jessica Schmitt RN; used for procedure; Verbal order read back and verified. 9:36:14 Oxygen 2 l/min etCO2 Nasal cannula was administered by Jessica Schmitt RN; used for procedure; Verbal order read back and verified. 9:36:22 Lidocaine 2% 20ml vial added to field was administered by Todd Snow MD; for local anesthetic; Verbal order read back and verified. 9:36:26 Heparin Flush Bag (1000units/500ml NS) 2 bags added to field was administered by Todd Snow MD; used for procedure; Verbal order read back and verified. 9:36:57 Baseline sample Acquired. 9:37:06 Rhythm: sinus tachycardia 9:37:08 Full Disclosure recording started 9:37:13 H&P Date Dictated: 09/24/2019 Within 30 days and on chart., H&P Addendum completed by physician on day of procedure. (MUST COMPLETE FOR ALL OUTPATIENTS). 9:38:57 Pre-procedure instructions explained to patient. 9:38:57 Pre-op teaching completed and patient verbalized understanding. 9:38:59 Family in waiting room. 9:39:00 Patient NPO since Midnight. 9:39:02 Is the patient allergic to Iodine/contrast media? No. 9:39:03 Was the patient premedicated? Yes 9:39:50 Is patient on blood thinner?Yes 9:39:51 Patient diabetic? Yes. 9:39:52 If diabetic: On Metformin? Yes 9:39:55 If on Metformin: Last Dose? 09/23/2019 9:41:28 ACC The patient was administered the following blood thiners within the last 24 hours: ACCPlavix 9:41:33 Previous problem with sedation/anesthesia? No ? 9:41:35 Snore? Yes 9:41:36 Sleep apnea? No 9:41:38 Deviated septum? No 9:41:39 Opens mouth fully? Yes 9:41:40 Sticks out tongue? Yes 9:41:49 Airway obstruction? No ? 9:41:57 Dentures? Yes uppers in tight 9:42:01 Pre procedure: right dorsailis pedis pulse 1+ Palpable, but thready & weak; easily obliterated 9:42:04 Pre procedure: left dorsailis pedis pulse 1+ Palpable, but thready & weak; easily obliterated 9:42:06 Patient pain scale 0/10 ?. 9:42:13 IV patent on arrival in left forearm with 0.9% NaCl at KVO. 9:42:16 Lab results completed and on chart. 9:42:20 Risk of Mortality: 0.1 9:42:24 Risk of blood transfusion: 0.1 9:42:27 Risk of DC: 1.0 9:42:33 Right groin area was prepped with chlora-prep and draped in sterile fashion 9:42:34 Alarms reviewed by R. N. 9:42:34 Sharps counted by scrub and verified by R.N. 9:42:58 2) 60-89 Mildly reduced kidney function, and other findings (as for stage 1) point to kidney disease. 9:43:02 Maximum allowable contrast dose (3.7 X eGFR X 0.75)175 ml. 9:43:07 Sedation plan: IV Moderate Sedation Medication:Versed, Fentanyl 9:52:29 Zero performed for pressure channel P1 9:58:51 Physician arrived 9:58:51 --------ALL STOP TIME OUT------ 9:58:52 Final Timeout: patient, procedure, and site verified with staff and physician. All members of the team are in agreement. 9:58:54 Right groin site verified by team. 9:58:57 Fire Safety Assessment: A--An alcohol-based skin anteseptic being used preoperatively., C--Open oxygen or nitrous oxide is being used., D--An ESU, laser, or fiber-optic light is being used. 9:59:03 Physical assessment completed. ASA score P 2 - A patient with mild systemic disease as per Todd Snow MD. 10:01:53 Versed 2 mg I.V. was administered by Jessica Schmitt RN; for sedation; Verbal order read back and verified. 10:02:02 Fentanyl 50 mcg I.V. was administered by Jessica Schmitt RN; for sedation; Verbal order read back and verified. 10:04:05 Use device set Femoral Dx 10:04:06 ACIST Syringe (12541) opened to sterile field. 10:04:06 Bag Decanter (2002S) opened to sterile field. 10:04:06 Medline Cath Pack ([id number]) opened to sterile field. 10:04:08 ACIST Hand Control (84668) opened to sterile field. 10:04:08 ACIST Manifold (30523) opened to sterile field. 10:04:08 DIAGNOSTIC Multipack 5Fr catheter set (RY6508) opened to sterile field. 10:04:09 Tegaderm 4 x 4 (1626W) opened to sterile field. 10:04:10 SHEATH 5FR [place] (TIE486) opened to sterile field. 10:04:10 EMERALD Guide Wire (738-698) opened to sterile field. 10:04:14 Procedure started. 10:04:19 Local anesthetic to right femoral artery with Lidocaine 2% by Todd Snow MD.INITIAL ACCESS ONLY 10:04:30 A 5 Fr sheath was inserted into the Right Femoral artery 10:05:26 A MULTIPACK Pigtail 5 Fr catheter was advanced over the wire and used for LV Angiography. 10:05:45 LV hemodynamics recorded. 10:05:47 LV gram done using CHOUDHURY 10:05:49 Injector settings: Ml/sec: 5, Volume: 15, 10:05:54 EF : 30 % 10:05:58 Catheter removed. 10:06:02 A MULTIPACK JL 4.0 5Fr catheter was advanced over the wire and used for Left Coronary Angiography. 10:06:51 LCA angiography performed. 10:06:54 Injector settings: Ml/sec: 3, Volume: 6, 10:07:55 Catheter removed. 10:08:00 A MULTIPACK 3DRC 5Fr catheter was advanced over the wire and used for Right Coronary Angiography. 10:08:52 Fentanyl 50 mcg I.V. was administered by Jessica Schmitt RN; for sedation; Verbal order read back and verified. 10:09:09 GUIDE 6FR EBU 4.5 catheter ([id number]) opened to sterile field. 10:09:10 [place] Verrata Plus pressure wire (95744Z) opened to sterile field. 10:09:10 INFLATOR Merit BasixCompak (HG5087) opened to sterile field. 10:09:11 SHEATH 6FR [place] (GDQ926) opened to sterile field. 10:09:37 Catheter removed. unable to cannulate vessel. 10:09:40 A DIAGNOSTIC AR2 MOD 5 Fr catheter ([id number]) was advanced over the wire and used for Right Coronary Angiography. 10:09:57 RCA angiography performed. 10:10:15 Injector settings: Ml/sec: 3, Volume: 6, 10:11:02 Catheter removed. 10:11:02 Proceeding to intervention. 10:11:07 ACC Pre-intervention FAREED Flow is 3. 10:12:05 Sheath upsized to a 6 Fr Short. 10:12:14 6 Fr ebu 4.5 guide catheter was inserted over the wire 10:12:18 FFR/IFR wire advanced. 10:12:20 Baseline FFR 1. 10:13:11 Wire advanced across lesion. 10:13:37 pLAD lesion measured at 0.87 with IFR 10:14:39 Heparin Bolus 4000 units I.V. was administered by Jessica Schmtit RN; for anticoagulation; verified with Dr. Snow Verbal order read back and verified. 10:14:52 Integrilin (Bolus 2mg/ml) 7.3 ml I.V. was administered by Jessica Schmitt RN; for antiplatelet therapy; Verbal order read back and verified. 10:15:10 Integrilin (Bolus 2mg/ml) 2.7 ml wasted was administered by Jessica Schmitt RN; for antiplatelet therapy; Verbal order read back and verified. 10:15:15 Plavix 600 mg P.O. was administered by Jessica Schmitt RN; for antiplatelet therapy; Verbal order read back and verified. 10:16:24 Pre PCI Site: [place] pLAD has 70% stenosis. 10:16:26 Place stent Inflation Number: 1 A SEBASTIAN RX 3.5 x 15 stent ([id number]) was prepped and advanced across the Prox LAD 70. The stent was deployed at 17 JOSE for 0:10 (min:sec) 0. 10:16:29 Stent catheter was removed intact over wire. 10:16:29 Wire removed. 10:16:30 Guide catheter removed. 10:16:40 GUIDE 6FR AR 2.0 catheter ([id number]) opened to sterile field. 10:16:48 6 Fr ar 2 guide catheter was inserted over the wire 10:18:07 FFR/IFR wire advanced. 10:18:08 Baseline FFR 1. 10:18:31 Wire advanced across lesion. 10:19:05 mRCA lesion measured at 0.96 with IFR 10:19:13 Wire removed. 10:19:14 Guide catheter removed. 10:19:30 EXOSEAL 6Fr (EX600) opened to sterile field. 10:20:15 Sheath removed intact; hemostasis achieved with Exoseal to the Right Femoral artery. 10:20:17 Procedure ended.(Physican Out) 10:20:26 Fluoroscopy time 03.90 minutes. 10:20:29 Fluoroscopy dose: 665 mGy 10:20:29 Flurop Dose total: 665 10:20:41 Dose Area Product 91710 mGy/cm. 10:20:44 Contrast amount:Isovue 300 99ml. 10:20:45 Maximum allowable dose exceeded? No. 10:20:46 Sharps counted by scrub and verified by R.N. 10:20:47 Insertion/operative site no bleeding no hematoma. 10:20:49 Post-op/insertion site Right Femoral artery dressed using a 4 x 4 and Tegaderm. 10:20:51 Post Procedure Pulses reassessed and unchanged 10:20:54 Post procedure rhythm: unchanged. 10:20:56 Estimated blood loss: 5 ml 10:20:57 Post procedure instruction explained to patient.Patient verbalizes understanding. 10:20:58 Patient needs reinforcement of post procedure teaching. 10:21:20 Procedure type changed to Cath procedure, Diagnostic procedure, C, [facility] w/Coronaries, FFR/IVUS, FFR Initial, FFR Additional, Sedation Charges, Moderate Sedation up to 15 minutes, PCI procedure, Coronary Stent, Coronary Stent Initial 10:21:21 Procedure and supply charges have been captured, reviewed, submitted and are correct. 10:21:25 Procedure Complication : No complications 10:21:27 Vital chart was stopped 10:21:30 [facility] Findings: MVD- PCI performed (see procedure note) 10:21:32 Operative report dictated upon procedure completion. 10:21:32 See physician's report for complete and final results. 10:21:34 Report given to Pre/Post Procedure Room. 10:21:36 Patient transfered to Pre/Post Procedure Room with Stretcher. 10:21:38 Procedure ended. 10:21:38 Full Disclosure recording stopped 10:22:04 ACC-PCI Only Patient was given prescriptions, or instructed by Todd Snow MD to start/continue the following medications upon discharge: Plavix 10:22:05 End room use (Document Last) 10:22:48 ACT drawn and resulted at 283 seconds. (normal therapeutic range 180-240 seconds). 10:24:31 End room use (Document Last) 10:25:27 End room use (Document Last) Intervention Summary Intervention Notes Time ActionType Lesion and Equipment Used Action# Pressure Duration Attributes 10:16:26 Place stent Prox LAD SEBASTIAN RX 3.5 x 1 17 00:10 15 stent ([id number]) Device Usage Item Name Manufacture Quantity Catalog Hospital Part Current Minimal Lot# / Number Charge Number Stock Stock Serial# Code ACIST Syringe Acist 1 23444 425302 171857 797958 20 (29666) Medical Systems Inc Bag Decanter Microtek 1 2001S 910216 06351 823441 5 (2001S) Medical Inc. Medline Cath Medline 1 [id number] 235700 61606 005555 5 Pack ([id number]) ACIST Hand Acist 1 14519 323626 166606 571306 5 Control Medical (44195) Systems Inc ACIST Manifold Acist 1 74470 899677 798651 920130 5 (68950) Medical Systems Inc DIAGNOSTIC Cardinal 1 ZU7848 892307 78189 991791 30 Multipack 5Fr Health catheter set (LO7445) Tegaderm 4 x 4 3M 1 1626W 637610 092599 593896 5 (1626W) SHEATH 5FR Terumo 1 MGI908 547116 772140 860147 5 [place] (IOZ931) EMERALD Guide Cardinal 1 502-455 916115 383258 992602 5 Wire (502-789) Health MULTIPACK Cardinal 1 931105 5 Pigtail 5 Fr Health catheter MULTIPACK JL Cardinal 1 816768 5 4.0 5Fr Health catheter MULTIPACK 3DRC Cardinal 1 563766 5 5Fr catheter Health GUIDE 6FR EBU Medtronic 1 [id number] 743544 90087 995977 0 4.5 catheter ([id number]) [place] 1 04931B 776371 563965787 425853 5 Verrata Plus pressure wire (78321P) INFLATOR Merit Merit 1 YV5699 204959 141912 335640 15 BasixCompak Medical (QP8020) SHEATH 6FR Terumo 1 QMF365 538253 757317 191020 40 [place] (DBP808) DIAGNOSTIC AR2 Cardinal 1 [id number] 904637 271384 729949 20 MOD 5 Fr Health catheter ([id number]) SEBASTIAN RX 3.5 x Medtronic 1 [id number] 466568 8345488 410949 5 [id number] 15 stent ([id number]) GUIDE 6FR AR Medtronic 1 [id number] 398110 76052 430122 1 2.0 catheter (FA0TB30) EXOSEAL 6Fr Cardinal 1 EX600 812409 327280 784664 10 (EX600) Health Signature Audit Sabina Stage Time Signature Unsigned Intra-Procedure 09/24/2019 Ira Talavera 10:24:31 AM RT(R) Intra-Procedure 09/24/2019 Jessica Schmitt 10:25:27 AM RN Intra-Procedure 09/24/2019 Todd Snow 10:26:15 AM Signatures Performing Physician : Signature : Todd Snow MD Date : Time : Monitor : Ira Talavera RT Signature : Date : Time : Nurse : Jessica Schmitt RN Signature : Date : Time : [facility] [address] [place] [address]
[2019-09-24] MEDS ORDERED: ZYLOPRIM100 MG PO (08:10)
[2019-09-24] MEDS ORDERED: BUMEX2 MG PO (08:11)
[2019-09-24] MEDS ORDERED: POTASSIUM CHLO10 ME1 PO (08:13)
[2019-09-24] MEDS ORDERED: PROTONIX40 MG PO (08:15)
[2019-09-24] MEDS ORDERED: ENTRESTO 24 MG1 EACH PO (08:15)
[2019-09-24] MEDS ORDERED: GLUCOTROL XL 1010 MG PO (08:16)
[2019-09-24] MEDS ORDERED: FLOMAX0.4 MG PO (08:16)
[2019-09-24] MEDS ORDERED: GLUCOPHAGE500 MG PO (08:18)
[2019-09-24 08:24] VITALS: BP 116/75; Ht 180.3 cm; Wt 76.2 kg
[2019-09-24 09:02] LABS: BASOPHILS 0.1 % (0-2); EOSINOPHILS 4.5 % (0-7); HEMATOCRIT 43.3 % (42.0-54.0); HEMOGLOBIN 14.1 g/dL (13.5-17.5); IMMATURE GRANULOCYTES 0.2 % (0-5); LYMPHOCYTES 22.2 % (15-50); MCHC 32.6 g/dL (31.0-37.0); MCV 86.1 fL (80.0-100.0); MEAN PLATELET VOLUME 10.9 fL (7.4-10.4); MONOCYTES 9.2 % (2-11); NEUTROPHILS 63.8 % (40-80); RBC 5.03 10x6/uL (4.20-6.10); RDW 18.3 % (11.5-14.5); WBC 8.4 10x3/uL (4.8-10.8)
[2019-09-24 09:04] LABS: PLATELET COUNT 193 10x3/uL (130-400)
[2019-09-24 09:20] LABS: CARBON DIOXIDE 32.3 mmol/L (21.0-32.0); CHOL - HDL RATIO 4.1 ratio (2.3-4.9); CREATININE - SERUM 1.4 mg/dL (0.6-1.3); LDL-HDL RATIO 2.3 ratio (1.5-3.5); POTASSIUM - SERUM 4.3 mmol/L (3.5-5.1)
[2019-09-24] MEDS ORDERED: BAYER CHEWABLE81 MG PO (10:32)
[2019-09-24] MEDS ORDERED: PLAVIX75 MG PO (10:32)
--- NOTE | 2019-09-24 10:35 | NUR ---
REC'D TO ROOM 7 POST KNITTED CLOTH EXAMINER VIA STRETCHER. MONITORS ESTAB. BRIDGE TENDER PER FLOWSHEET. ALARMS ON AND C/L IN REACH. AT BS.
--- NOTE | 2019-09-24 10:45 | NUR ---
R GROIN SITE C/D/I, NO S/S OF BLEEDING OR HEMATOMA. PULSES PALP B/P 123/86, HR 83, POX 95%. C/L IN REACH.
--- NOTE | 2019-09-24 11:15 | NUR ---
R GROIN SITE C/D/I, NO S/S OF HEMATOMA OR BLEEDING, VSS. C/L IN REACH.
--- NOTE | 2019-09-24 11:30 | NUR ---
DR MANDEL IN TO SEE PT AND UPDATED . R GROIN SITE SOFT, C/D/I, NO S/S BLEEDING OR HEMATOMA. VSS. C/L IN REACH.
--- NOTE | 2019-09-24 11:45 | NUR ---
R GROIN SITE C/D/I, NO S/S OF BLEEDING OR HEMATOMA. PT AWAKENS EASILY, DENIES NEEDS. VSS. C/L IN REACH.
--- NOTE | 2019-09-24 12:15 | NUR ---
PT RESTING QUIETLY, VSS. R GROIN SITE SOFT, NO S/S OF BLEEDING OR HEMATOMA. DENIES NEEDS.
--- NOTE | 2019-09-24 12:46 | NUR ---
R GROIN SITE C/D/I, NO S/S OF BLEEDING OR HEMATOMA. ICE CHIPS PROVIDED, AT BS.
--- NOTE | 2019-09-24 13:15 | NUR ---
HOB ELEVATED, R GROIN SITE SOFT, C/D/I. VSS.
--- NOTE | 2019-09-24 13:34 | NUR ---
R JIE SITE C/D/I, SANDWICH PROVIDED, POX 97% ON RA.
--- NOTE | 2019-09-24 13:57 | NUR ---
PIV D/C'D WITH CATH INTACT, DSG APPLIED. [facility] CALLED IN TO [facility] PER PT REQUEST. R GROIN SITE SOFT, C/D/I.
--- NOTE | 2019-09-24 14:10 | NUR ---
PT ALLOWED UP TO GET DRESSED, WENT TO BR INDEPENDENTLY. ALL DISCHARGE INSTRUCTIONS REVIEWED WITH PT AND HIS .
--- NOTE | 2019-09-24 14:15 | NUR ---
PT DC'D VIA WC WITH . PT HAS ALL BELONGINGS AND PAPER WORK WITH HIM.
--- NOTE | 2019-10-01 10:23 | OP ---
PATIENT NAME: TATYANA DAI MEDICAL RECORD: [id number] :42 LOCATION:D.CAT ADMISSION DATE: SURGEON: EVER MANDEL MD DATE OF OPERATION: 09/24/2019 PROCEDURES: 1. PTCA stent LAD. 2. IFR LAD. 3. IFR RCA. 4. Left heart catheterization. 5. Selective coronary angiography. 6. Left ventriculogram. INDICATION: Angina, coronary artery disease, and cardiomyopathy. PROCEDURE IN DETAIL: After informed consent was obtained and after a detailed description of risks, benefits as well as alternative therapies, the patient elected to proceed with angiogram and angioplasty. The right femoral area was prepped and draped in normal sterile fashion. Right femoral artery was cannulated via modified Seldinger technique with placement of 6-[place] sheath. All catheters exchanged through the sheath. FINDINGS: Left ventriculogram was performed in standard 30-degree CHOUDHURY view, reveals global hypokinesis throughout all segments. Overall ejection fraction 25%. SELECTIVE CORONARY ANGIOGRAPHY: 1. Left main has no significant angiographic disease. 2. Left anterior descending has a previously placed stent that is widely patent; however, there is 70% stenosis proximal to this and the IFR was abnormal at 0.87. 3. Left circumflex has mild irregularities, but no flow-limiting stenosis. 4. The right coronary has a questionable lesion in the mid vessel; however, IFR is normal at 0.96. PTCA STENT OF THE LAD: The stent used was a 3.5 x 15 mm Puneet. Result was 0% residual stenosis. OVERALL IMPRESSION: Successful percutaneous transluminal coronary angioplasty stent of the left anterior descending going from 70% initial stenosis to 0% residual. TRANSINT:[id number] Voice Confirmation ID: [id number] DOCUMENT ID: [id number] EVER MANDEL MD at 1023 CC: [id number] DICTATION DATE: 09/30/19 1206 WELLNESS DIRECTOR: 09/30/19 1318 DEP CLI 09/24/19 [place] [id number]
== END 2019-09-24 14:15 | disposition home or self-care (01) ==
LOC: D.CATH 07:52
PROVIDERS: ATTEND Internal Medicine Interventional Cardiology
DX: I25.119 Atherosclerotic heart disease of native coronary artery with unspecified angina pectoris (principal); I42.9 Cardiomyopathy, unspecified; I50.9 Heart failure, unspecified; I11.0 Hypertensive heart disease with heart failure; E11.9 Type 2 diabetes mellitus without complications; Z79.84 Long term (current) use of oral hypoglycemic drugs; E78.5 Hyperlipidemia, unspecified
CPT/HCPCS: 93458; 93571; 93572; C9600

== ENCOUNTER → 2020-05-23 11:04 | Outpatient (CLI) | payer MEDICARE ==
[2019-09-24 08:24] VITALS: BMI 23.4
[~2020-05-23 11:04] MED LIST changes: +BAYER CHEWABLE81 MG PO; +BUMEX2 MG PO; +ENTRESTO 24 MG1 EACH PO; +FLOMAX0.4 MG PO; +GLUCOPHAGE500 MG PO; +GLUCOTROL XL 1010 MG PO; +POTASSIUM CHLO10 ME1 PO; +PROTONIX40 MG PO; +ZYLOPRIM100 MG PO
== END | disposition home or self-care (01) ==
LOC: D.HCCECHO 11:04
PROVIDERS: ATTEND Internal Medicine Cardiovascular Disease
DX: I25.10 Atherosclerotic heart disease of native coronary artery without angina pectoris (principal)

== ENCOUNTER → 2020-12-07 08:34 | Outpatient (CLI) | payer MEDICARE ==
[2019-09-24 08:24] VITALS: BMI 23.4
== END | disposition home or self-care (01) ==
LOC: D.HCCARDIO 08:34
PROVIDERS: ATTEND Internal Medicine Cardiovascular Disease
DX: I25.10 Atherosclerotic heart disease of native coronary artery without angina pectoris (principal)

== ENCOUNTER 2020-12-21 07:17 | Day surgery (SDC) | payer MEDICARE ==
[~2020-12-21] VITALS: Ht 180.3 cm; Wt 82.9 kg
--- NOTE | ~2020-12-21 | HEMODYNAMI ---
PATIENT:TATYANA DAI MEDICAL RECORD: [id number] : 42 LOCATION:[facility] ADMISSION DATE: 12/21/20 Generatedon:110:25 Patient name: TATYANA DAI Patient #: [id number] : 1940 Date of study: 12/21/2020 Page: Of Hemodynamic Procedure Report Patient Data Patient Demographics Procedure consent was obtained First Name: TATYANA Gender: Male Last Name: SUHAS : 1940 Patient #: [id number] Age: 80 year(s) Race: Black SSN: [id number] Additional ID: [id number] Contact details [address]: [address] [place] [address] State: [place] City: [place] Zip code: [address] Past Medical History Performed procedures and imaging results Date Procedure Procedure Results Comments 12/07/2020 Stress testing Positive->Intermediate with SPECT MPI risk Allergies: No known allergies Admission Admission Data Admission Date: 12/21/2020 Admission Time: 7:17 Arrival Date: 12/21/2020 Arrival Time: 0:00 Admit Source: Other Insurance Payor: Medicare [facility] #: [id number] Height (in.): 71 BSA: 2.03 (m2) Height (cm.): 180.34 BMI: 25.49 (kg/m2) Weight (lbs.): 182.76 Weight (kg.): 82.9 Lab Results Lab Result Date: 12/21/2020 Lab Result Time: 0:00 Biochemistry Name Units Result Min Max BUN mg/dl 57 --(----)-* 7 18 Creatinine mg/dl 2.1 --(----)-* 0.6 1.3 eGFR ml/min 39 *-(----)-- 90 120 AM CBC Name Units Result Min Max Hematocrit % 41.6 -*(----)-- 42 54 Hemoglobin g/dl 13.5 --(*---)-- 13.5 17.5 Procedure Procedure Types Cath Procedure Diagnostic Procedure [facility] w/Coronaries FFR/IVUS FFR Initial Aortic Root Angiography Sedation Charges Moderate Sedation 40-54 minutes PCI Procedure Hemochron ACT Test Procedure Description Procedure Date Procedure Date: 12/21/2020 Procedure Start Time: 9:34 Procedure End Time: 10:23 Procedure Staff Name Function Won Yusuf MD Performing Physician Sreekanth Delacruz RN Nurse Ira Talavera RT Scrub Carmela Pompa RT Monitor Procedure Data Cath Procedure Fluoroscopy Diagnostic fluoroscopy Total fluoroscopy Time: time: 16.1 min 16.1 min Diagnostic fluoroscopy Total fluoroscopy dose: dose: 1786 mGy 1786 mGy Contrast Material Contrast Material Type Amount (ml) Isovue 370 159 Entry Location Entry Primary Successful Side Size Upsize Upsize Entry Closure Succes sful Closure Location (Fr) 1 (Fr) 2 (Fr) Remarks Device Remarks Femoral Right 5 Fr Exoseal artery Estimated blood loss: 10 ml Diagnostic catheters Device Type Used For End Catheter Placement MULTIPACK JL 4.0 5Fr Procedure catheter DIAGNOSTIC JL 5 5Fr Procedure catheter ([id number]) DIAGNOSTIC AR2 MOD 5 Fr Procedure catheter ([id number]) MULTIPACK Pigtail 5 Fr Procedure catheter DIAGNOSTIC AR MOD 5Fr Procedure Catheter ([id number]) DIAGNOSTIC AL1 5Fr Procedure catheter ([id number]) Procedure Complications No complications Procedure Medications Medication Administration Route Dosage 0.9% NaCl I.V. 100 ml/hr Oxygen etCO2 Nasal cannula 2 l/min Heparin Flush Bag added to field 2 bags (1000units/500ml NS) Lidocaine 2% added to field 20 Versed I.V. 1 mg Fentanyl I.V. 50 mcg Versed I.V. 0.5 mg Heparin Bolus I.V. 5000 units Hemodynamics Rest BSA: 2.03 (m2) HGB: 13.5 (g/dl) O2 Consumption: Estimated: 258.94 (ml/min) O2 Co nsumption indexed: Estimated:127.56 (ml/min/m) Heart Rate: 105 (bpm) Pressure Samples Time Site Value (mmHg) Purpose Heart Use Rate(bpm) 9:45 LV 146/55,61 Snapshot 91 9:45 LV 116/0,21 Snapshot 95 9:46 AO 124/75(96) Pullback 92 9:46 LV 121/4,31 Pullback 92 Gradients Valve Time Site 1 Site 2 Mean SEP/DFP Peak To Heart Use (mmHg) (sec/min) Peak Rate (mmHg) (bpm) Aortic 9:46 LV AO 0 8 0 92 121/4,31 124/75(96) Calculations Valve P-P Mean Valve Index Valve Source Name Gradient Area Flow (cm2) Aortic 0 0 0 0 Snapshots Pre Cath Intra NCS Post Cath Vital Signs Time Heart Resp SPO2 etCO2 NIBP (mmHg) Rhythm Pain Sedation Rate (ipm) (%) (mmHg) Status Level (bpm) 8:58:33 99 100 21.9 149/102(126) NSR 0 (11) 10(A) , No pain 9:02:45 102 18 99 3 142/102(122) NSR 0 (11) 10(A) , No pain 9:06:53 101 18 99 0 142/100(121) NSR 0 (11) 10(A) , No pain 9:11:01 99 22 79 0.7 137/107(120) NSR 0 (11) 10(A) , No pain 9:15:06 102 22 89 3.7 130/102(117) NSR 0 (11) 10(A) , No pain 9:19:10 99 23 91 8.3 125/102(115) NSR 0 (11) 10(A) , No pain 9:23:16 97 24 91 0 128/83(109) NSR 0 (11) 10(A) , No pain 9:27:22 96 12 100 0 132/91(107) NSR 0 (11) 10(A) , No pain 9:31:28 95 22 100 0 129/92(108) NSR 0 (11) 10(A) , No pain 9:35:31 94 11 100 0 133/100(117) NSR 0 (11) 10(A) , No pain 9:39:37 94 12 100 4.5 122/99(109) NSR 0 (11) 10(A) , No pain 9:43:39 94 22 97 18.9 121/93(109) NSR 0 (11) 10(A) , No pain 9:47:44 94 23 94 0 113/84(95) NSR 0 (11) 10(A) , No pain 9:51:42 93 22 92 11.3 129/94(111) NSR 0 (11) 10(A) , No pain 9:55:46 91 21 99 0 134/93(112) NSR 0 (11) 10(A) , No pain 9:59:56 91 22 99 1.5 127/87(105) NSR 0 (11) 10(A) , No pain 10:03:59 91 21 98 12.8 125/93(108) NSR 0 (11) 10(A) , No pain 10:08:01 90 20 98 20.4 128/95(110) NSR 0 (11) 10(A) , No pain 10:12:05 88 19 98 12.8 130/98(112) NSR 0 (11) 10(A) , No pain 10:16:09 89 21 100 18.1 131/96(113) NSR 0 (11) 10(A) , No pain 10:20:12 91 20 100 24.9 132/102(119) NSR 0 (11) 10(A) , No pain 10:24:16 92 21 99 134/100(118) NSR 0 (11) 10(A) , No pain Medications Time Medication Route Dose Verified Delivered Reason Notes Effectiveness by by 9:00:00 0.9% NaCl I.V. 100 Sreekanth Sreekanth Per physician ml/hr Nubia Delacruz RN RN 9:00:10 Oxygen etCO2 2 Sreekanth Sreekanth for low 02 sats Nasal l/min Nubia Delacruz cannula RN RN 9:00:20 Heparin Flush added 2 Sreekanth Sreekanth used for Bag to bags Nubia Delacruz procedure (1000units/500ml RN RN NS) 9:00:29 Lidocaine 2% added 20ml Sreekanth Sreekanth for local to vial Nubia Delacruz anesthetic RN RN 9:34:58 Versed I.V. 1 mg Sreekanth Sreekanth for sedation Nubia Delacruz RN RN 9:35:07 Fentanyl I.V. 50 Sreekanth Sreekanth for sedation mcg Nubia Delacruz RN RN 9:47:59 Versed I.V. 0.5 Sreekanth Sreekanth for sedation mg Nubia Delacruz RN RN 9:53:27 Heparin Bolus I.V. 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 8:16:18 Procedure Status Elective Heart Cath (OP). 8:16:20 Time tracking: Regular hours (M-F 7:00 - 5:00) 8:16:24 Plan of Care:Hemodynamics will remain stable., Cardiac rhythm will remain stable., Comfort level will be maintained., Respiratory function will remain adequate., Patient/ family verbilizes understanding of procedure., Procedure tolerated without complication., Recovers from procedure without complications.. 8:16:30 H&P Date Dictated: 12/04/2020 Within 30 days and on chart.. 8:16:32 Pre-procedure instructions explained to patient. 8:16:33 Pre-op teaching completed and patient verbalized understanding. 8:16:38 Family in waiting room. 8:16:40 Patient NPO since Midnight. 8:17:18 Alarms reviewed by R. N. 8:17:18 Sharps counted by scrub and verified by R.N. 8:17:23 Lab results pending. 8:17:40 Stress Test: yes; abnormal INFERIOR 8:32:58 Lab Result : Creatinine 2.1 mg/dl 8:32:58 Lab Result : BUN 57 mg/dl 8:32:58 Lab Result : Hemoglobin 13.5 g/dl 8:32:58 Lab Result : eGFR AM 39 ml/min 8:32:58 Lab Result : Hematocrit 41.6 % 8:33:38 Arrival Date: 12/21/2020 12:00:00 AM 8:33:41 Insurance Payor : Medicare 8:33:57 Patient Height : 71 inches 8:34:01 Patient Weight : 182.76 lbs 8:49:03 Sreekanth Delacruz RN sent for patient. Start room use. 8:50:26 Use device set Femoral Dx 8:57:27 Patient received from Pre/Post Procedure Room to [facility] 2 Alert and oriented. Tansferred to table in Supine position. 8:57:28 Warm blankets applied, and yaa hugger turned on for patient comfort. 8:57:29 Correct patient and procedure confirmed by team. 8:57:29 ECG and BP/O2 sat monitors applied to patient. 8:57:30 Vital chart was started 8:57:32 Full Disclosure recording started 8:57:39 Baseline sample Acquired. 8:57:42 Rhythm: sinus tachycardia 8:57:46 Is the patient allergic to Iodine/contrast media? No. 8:57:48 Was the patient premedicated? Yes 8:57:49 Is patient on blood thinner?No 8:57:51 Patient diabetic? Yes. 8:57:53 If diabetic: On Metformin? Yes 8:57:56 If on Metformin: Last Dose? 12/19/2020 8:57:57 ----Pre-sedation anethsthesia assessment.---- 8:58:06 Previous problem with sedation/anesthesia? No ? 8:58:07 Snore? Yes 8:58:09 Sleep apnea? Unknown 8:58:10 Deviated septum? No 8:58:11 Opens mouth fully? Yes 8:58:12 Sticks out tongue? Yes 8:58:15 Airway obstruction? No ? 8:58:18 Dentures? Yes IN TIGHT 8:58:25 Patient pain scale 0/10 ?. 8:58:30 IV patent on arrival in left antecubital with 0.9% NaCl at [facility]. 8:58:35 Right groin area was prepped with chlora-prep and draped in sterile fashion 8:58:39 ACIST Syringe (44004) opened to sterile field. 8:58:39 Bag Decanter (2002) opened to sterile field. 8:58:40 Medline Cath Pack ([id number]) opened to sterile field. 8:58:42 ACIST Hand Control (03383) opened to sterile field. 8:58:43 ACIST Manifold (16728) opened to sterile field. 8:58:44 Tegaderm 4 x 4 (1626W) opened to sterile field. 8:58:45 SHEATH 5FR [place] (RHE796) opened to sterile field. 8:58:46 EMERALD Guide Wire (308-841) opened to sterile field. 9:00:00 0.9% NaCl 100 ml/hr I.V. was administered by Sreekanth Delacruz RN; Per physician; Verbal order read back and verified. 9:00:10 Oxygen 2 l/min etCO2 Nasal cannula was administered by Sreekanth Delacruz RN; for low 02 sats; Verbal order read back and verified. 9:00:20 Heparin Flush Bag (1000units/500ml NS) 2 bags added to field was administered by Sreekanth Delacruz RN; used for procedure; Verbal order read back and verified. 9:00:29 Lidocaine 2% 20ml vial added to field was administered by Sreekanth Delacruz RN; for local anesthetic; Verbal order read back and verified. 9:17:08 --------ALL STOP TIME OUT------ 9:17:08 Final Timeout: patient, procedure, and site verified with staff and physician. All members of the team are in agreement. 9:17:11 Right groin site verified by team. 9:17:15 Fire Safety Assessment: A--An alcohol-based skin anteseptic being used preoperatively., C--Open oxygen or nitrous oxide is being used., D--An ESU, laser, or fiber-optic light is being used. 9:17:18 Physical assessment completed. ASA score P 2 - A patient with mild systemic disease as per Won Yusuf MD. 9:17:24 3a) 45-59 Moderately reduced kidney function. 9:17:26 Maximum allowable contrast dose (3.7 X eGFR X 0.75)108 ml. 9:17:30 Sedation plan: IV Moderate Sedation Medication:Versed, Fentanyl 9:33:54 Procedure started. 9:34:14 Local anesthetic to right femoral artery with Lidocaine 2% by Won Yusuf MD.INITIAL ACCESS ONLY 9:34:58 Versed 1 mg I.V. was administered by Sreekanth Delacruz RN; for sedation; Verbal order read back and verified. 9:35:07 Fentanyl 50 mcg I.V. was administered by Sreekanth Delacruz RN; for sedation; Verbal order read back and verified. 9:35:33 A 5 Fr sheath was inserted into the Right Femoral artery 9:36:10 A MULTIPACK JL 4.0 5Fr catheter was advanced over the wire and used for Procedure. 9:38:11 CHANGING GUIDES UNABLE TO ENGAGE WITH JL4. 9:38:21 A DIAGNOSTIC JL 5 5Fr catheter ([id number]) was advanced over the wire and used for Procedure. 9:38:35 LCA angiography performed. 9:38:38 Injector settings: Ml/sec: 3, Volume: 6, 9:39:40 Catheter exchanged over wire. 9:40:13 A DIAGNOSTIC AR2 MOD 5 Fr catheter ([id number]) was advanced over the wire and used for Procedure. 9:41:15 RCA angiography performed. 9:41:17 Injector settings: Ml/sec: 3, Volume: 6, 9:43:48 Catheter exchanged over wire. 9:44:50 A MULTIPACK Pigtail 5 Fr catheter was advanced over the wire and used for Procedure. 9:45:06 LV gram done using CHOUDHURY 9:45:23 Zero performed for pressure channel P1 9:45:34 Zero performed for pressure channel P1 9:45:55 LV hemodynamics recorded. 9:46:00 Injector settings: Ml/sec: 5, Volume: 15, 9:46:05 EF : 20 % 9:46:30 Aortic Root visualized 9:46:34 Injector settings: Ml/sec: 10, Volume: 20, 9:47:59 Versed 0.5 mg I.V. was administered by Sreekanth Delacruz RN; for sedation; Verbal order read back and verified. 9:50:54 Catheter exchanged over wire. 9:50:55 Proceeding to intervention. 9:50:59 Use device set YUSUF PCI 9:51:02 INFLATOR Merit BasixCompak (OU6963) opened to sterile field. 9:51:02 TUBING High Pressure Extension Tubing (Yusuf) ([id number]) opened to sterile field. 9:51:[address] OmniWire (21030) opened to sterile field. 9:52:39 5 Fr AR 2 guide catheter was inserted over the wire 9:53:27 Heparin Bolus 5000 units I.V. was administered by Sreekanth Delacruz RN; for anticoagulation; Verbal order read back and verified. 9:53:54 Pressure wire advanced. 9:58:33 UNABLE TO GET PRESSURE WIRE DOWN WITH AR 2 GUIDE CHANGING GUIDES. 9:58:39 Wire removed. 9:58:40 Guide catheter removed. 9:59:26 A DIAGNOSTIC AR MOD 5Fr Catheter ([id number]) was advanced over the wire and used for Procedure. 9:59:28 5 Fr AR MOD guide catheter was inserted over the wire 10:00:32 Pressure wire advanced. 10:02:56 UNABLE TO GET PRESSURE WIRE DOWN USING AR MOD CHANGING GUIDES. 10:03:12 Wire removed. 10:03:13 Guide catheter removed. 10:03:43 A DIAGNOSTIC AL1 5Fr catheter ([id number]) was advanced over the wire and used for Procedure. 10:04:06 5 Fr AL 1 guide catheter was inserted over the wire 10:05:25 Pressure wire advanced. 10:12:34 Wire advanced across lesion. 10:15:00 UNABLE TO GET PRESSURE READING DUE TO DAMPENING. 10:16:51 Wire removed. 10:16:52 Guide catheter removed. 10:16:59 EXOSEAL 5Fr (EX500) opened to sterile field. 10:17:15 Sheath removed intact; hemostasis achieved with Exoseal to the Right Femoral artery. 10:17:17 Procedure ended.(Physican Out) 10:18:52 Fluoroscopy time 16.10 minutes. 10:18:56 Fluoroscopy dose: 1786 mGy 10:18:56 Flurop Dose total: 1786 10:19:07 Dose Area Product 598814 mGy/cm. 10:19:11 Contrast amount:Isovue 370 159ml. 10:19:14 Maximum allowable dose exceeded? Yes. 10:19:15 Sharps counted by scrub and verified by R.N. 10:19:19 Post-op/insertion site Right Femoral artery dressed using a 4 x 4 and Tegaderm. 10:19:24 Post right femoral artery:stable, soft, clean and dry 10:19:26 Post Procedure Pulses reassessed and unchanged 10:19:29 Post procedure: right dorsailis pedis pulse 1+ Palpable, but thready & weak; easily obliterated. 10:19:32 Post-procedure physical assessment completed. ASA score P 2 - A patient with mild systemic disease as per Won Yusuf MD. 10:19:34 Post procedure rhythm: unchanged. 10:19:41 Estimated blood loss: 10 ml 10:19:42 Post procedure instruction explained to patient.Patient verbalizes understanding. 10:19:43 Patient needs reinforcement of post procedure teaching. 10:21:11 Procedure type changed to Cath procedure, Diagnostic procedure, LHC, LHC w/Coronaries, FFR/IVUS, FFR Initial, Aortic Root Angiography, Sedation Charges, Moderate Sedation 40-54 minutes, PCI procedure, Hemochron ACT Test 10:23:04 ACT drawn and resulted at >400 high out of range seconds. (normal therapeutic range 180-240 seconds). 10:23:29 Procedure and supply charges have been captured, reviewed, submitted and are correct. 10:23:32 Procedure Complication : No complications 10:23:38 [facility] Findings: MVD- PCI performed (see procedure note) 10:23:40 Operative report dictated upon procedure completion. 10:23:40 See physician's report for complete and final results. 10:23:43 Report given to Pre/Post Procedure Room. 10:23:46 Patient transfered to Pre/Post Procedure Room with Stretcher. 10:23:48 Procedure ended. 10:23:48 Full Disclosure recording stopped 10:24:06 End room use (Document Last) 10:24:17 End room use (Document Last) 10:24:56 End room use (Document Last) 10:25:28 Vital chart was stopped Device Usage Item Name Manufacture Quantity Catalog Hospital Part Current Minimal L ot# / Number Charge Number Stock Stock Serial# Code ACIST Acist 1 09459 310137 904843 703985 20 Syringe Medical (27075) Systems Inc Bag Microtek 1 2001S 561349 15987 845092 5 Decanter Medical Inc. () Medline Medline 1 [id number] 842588 44296 443510 5 Cath Pack ([id number]) ACIST Hand Acist 1 82841 069126 458254 345217 5 Control Medical (80105) Systems Inc ACIST Acist 1 85155 493139 583184 782348 5 Manifold Medical (36015) Systems Inc Tegaderm 4 3M 1 1626W 098638 717211 422846 5 x 4 (1626W) SHEATH 5FR Terumo 1 CNL526 516210 550725 019553 5 [place] (UIG133) EMERALD Cardinal 1 502-455 890643 933061 341162 5 Guide Wire Health (502-455) MULTIPACK Cardinal 1 362485 5 JL 4.0 5Fr Health catheter DIAGNOSTIC Cardinal 1 792200I 706095 819096 470646 5 JL 5 5Fr Health catheter (374801U) DIAGNOSTIC Cardinal 1 062295G 325973 173189 802055 20 AR2 MOD 5 Health Fr catheter (184665H) MULTIPACK Cardinal 1 318159 5 Pigtail 5 Health Fr catheter INFLATOR Merit 1 FT7808 168634 607545 941084 15 Merit Medical BasixCompak (QV1759) TUBING High Merit 1 [id number] 411115 72731 116971 10 Pressure Medical Extension Tubing (Yusuf) (YE7829D) [address] 1 8174247 854702 83402 9964 5 OmniWire (60334) DIAGNOSTIC Cardinal 1 [id number] 142374 456913 939650 15 AR MOD 5Fr Health Catheter (619989J) DIAGNOSTIC Cardinal 1 952302W 660036 397828 372880 15 AL1 5Fr Health catheter (328891I) EXOSEAL 5Fr Cardinal 1 EX500 027517 899377 031426 10 (EX500) Health Signature Audit [place] Stage Time Signature Unsigned Intra-Procedure 12/21/2020 Carmela Pompa 10:24:17 AM RT(R) Intra-Procedure 12/21/2020 Sreekanth 10:24:56 AM Nubia RN Intra-Procedure 12/21/2020 Won Yusuf MD 10:25:25 AM Signatures Performing Physician : Signature : Won Yusuf MD Date : Time : Nurse : Sreekanth Delacruz Signature : RN Date : Time : Monitor : Carmela Pompa Signature : RT Date : Time : [facility] [address] [place], [place] [address]
[2020-12-21] MEDS ORDERED: JANUVIA100 MG PO (07:52)
[2020-12-21] MEDS ORDERED: GLUCOPHAGE500 MG PO (07:54)
[2020-12-21] MEDS ORDERED: VITAMIN D325 MC1 PO (07:56)
[2020-12-21] MEDS ORDERED: BUMEX2 MG PO (07:57)
[2020-12-21 08:09] VITALS: BP 136/94; Ht 180.3 cm; Wt 82.9 kg
[2020-12-21 08:14] LABS: BASOPHILS 0.1 % (0-2); HEMATOCRIT 41.6 % (42.0-54.0); HEMOGLOBIN 13.5 g/dL (13.5-17.5); IMMATURE GRANULOCYTES 0.1 % (0-5); LYMPHOCYTE ABS# 1.88 10x3/uL (1.32-3.57); MCH 29.4 pg (26.0-34.0); MCHC 32.5 g/dL (31.0-37.0); MCV 90.6 fL (80.0-100.0); MEAN PLATELET VOLUME 11.9 fL (7.4-10.4); MONOCYTES 9.7 % (2-11); NEUTROPHIL ABS# 6.02 10x3/uL (1.78-5.38); NEUTROPHILS 67.1 % (40-80); PLATELET COUNT 212 10x3/uL (130-400); RBC 4.59 10x6/uL (4.20-6.10); RDW 15.9 % (11.5-14.5)
[2020-12-21 08:27] LABS: ANION GAP 17.4 mmol/L (8-16); CALCIUM 9.2 mg/dL (8.5-10.1); CARBON DIOXIDE 28.1 mmol/L (21.0-32.0); CHOL - HDL RATIO 3.1 ratio (2.3-4.9); CREATININE - SERUM 2.1 mg/dL (0.6-1.3); LDL-HDL RATIO 1.6 ratio (1.5-3.5); POTASSIUM - SERUM 4.5 mmol/L (3.5-5.1)
--- NOTE | 2020-12-21 10:35 | NUR ---
PT REC'D TO CATH RECOVERY ROOM 10. MONITORS ESTAB. AT BS. SEE SHIPPING ROOM SUPERVISOR FLOWSHEETS. ALARMS ON AND C/L IN REACH.
--- NOTE | 2020-12-21 10:50 | NUR ---
PT VOIDED 300CC CLEAR, YELLOW URINE IN URINAL. R GROIN SITE SOFT, NO S/S BLEEDING OR HEMATOMA PULSES PALP. R LEG/FOOT WARM, CAP REFILL WNL. WHEN PT FALLS ASLEEP - APNIC PERIODS NOTED, POX DROPS TO 79% VERY BRIEFLY, THEN RIGHT BACK UP TO 97% WILL CONT CLOSE MONITORING. ALARMS ON AND C/L IN REACH.
--- NOTE | 2020-12-21 11:20 | NUR ---
PT RESTING QUIETLY, VSS. R GROIN SITE SOFT, NO S/S BLEEDING OR HEMATOMA. R LEG/FOOT WARM WITH PALP PULSES AND CAP REFILL WNL. PT WITH NOTED SLEEP APNEA STILL, BUT QUICKLY SATS COME BACK UP TO 96%, AND PT AWAKENS EASILY. ALARMS ON AND C/L IN REACH.
--- NOTE | 2020-12-21 11:45 | NUR ---
DR. VEGA IN TO SEE PT AND DISCUSS TEST RESULTS, QUESTIONS ANSWERED. 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 R GROIN SITE SOFT, NO S/S BLEEDING OR HEMATOMA, PULSES PALP. VSS.
--- NOTE | 2020-12-21 12:15 | NUR ---
R GROIN EXOSEAL SITE SOFT, NO S/S BLEEDING OR HEMATOMA. PULSES PALP. HOB ELEVATED SLOWLY. SANDWICH TRAY AND WATER PROVIDED. ASSISTING. ALARMS ON AND C/L IN REACH.
--- NOTE | 2020-12-21 12:45 | NUR ---
R GROIN SITE SOFT, NO S/S BLEEDING OR HEMATOMA. PULSES PALP. PT ATE ALL OF SANDWICH, NO N/V, DENIES PAIN OR NEEDS. ALARMS ON AND C/L IN REACH.
--- NOTE | 2020-12-21 13:06 | NUR ---
R GROIN SITE SOFT, C/D/I. PULSES PALP. PIV D/C'D INTACT, DSG APPLIED. PT ALLOWED UP TO GET DRESSED AND GO TO BR INDEPENDENTLY.
--- NOTE | 2020-12-21 13:15 | NUR ---
DR. REAVES OFFICE NOTIFIED OF PT NEED FOR F/U APPT RE: SLEEP APNEA.
--- NOTE | 2020-12-21 13:31 | NUR ---
ALL DISCHARGE INSTRUCTIONS REVIEWED WITH PT AND HIS , INCLUDING RESTRICTIONS, MEDS AND F/U APPT. BOTH VERBALIZE UNDERSTANDING. PT D/C'D VIA WC TO PRIVATE VEHICLE WITH ALL PAPERWORK AND BELONGINGS.
== END 2020-12-21 13:31 | disposition home or self-care (01) ==
LOC: D.CATH 07:17
PROVIDERS: ATTEND Internal Medicine Cardiovascular Disease
DX: I25.118 Atherosclerotic heart disease of native coronary artery with other forms of angina pectoris (principal); R94.39 Abnormal result of other cardiovascular function study; R06.00 Dyspnea, unspecified; R53.83 Other fatigue; I42.9 Cardiomyopathy, unspecified; I35.1 Nonrheumatic aortic (valve) insufficiency